=== PATIENT | male | born 1940 | race Caucasian/White ===

== ENCOUNTER 2017-01-08 07:34 | Outpatient (CLI) | payer MEDICARE, OTHER ==
[2017-01-08 08:16] LABS: ALT (SGPT) 9 U/L (0-55); AST (SGOT) 11 U/L (5-34); Alkaline Phosphatase 53 U/L (40-150); Anion Gap 18 mmol/L (10-20); BUN (Urea Nitrogen) 20 mg/dL (8.4-25.7); Bilirubin, Direct 0.2 mg/dL (0.1-0.3); Bilirubin, Total 0.4 mg/dL (0.2-1.2); Calc. Creatinine Clearance 0 mL/min (70-130); Calcium 8.7 mg/dL (7.8-10.44); Carbon Dioxide 20 mmol/L (23-31); Cardiac Risk 3.5 (Less than 4.5); Chloride 105 mmol/L (98-107); Cholesterol 129 mg/dL (< 200 Desired); Estimated GFR-MDRD 51; Glucose 100 mg/dL (83-110); HDL Cholesterol 37 mg/dL (>60 Neg Risk); LDL Cholesterol, Calculated 74 mg/dL; Potassium 4.3 mmol/L (3.5-5.1); Protein, Total 6.9 g/dL (5.8-8.1); Sodium 139 mmol/L (136-145); Triglycerides 90 mg/dL (Less than 150)
[2017-01-08 08:20] LABS: Hemoglobin A1c 5.7 % (4.0-6.0)
== END 2017-01-08 07:35 | disposition home or self-care (01) ==
LOC: MADLABBHPM 07:34
PROVIDERS: ATTEND Family Medicine
DX: E78.5 Hyperlipidemia, unspecified (principal); E11.9 Type 2 diabetes mellitus without complications
CPT/HCPCS: 36415; 80048; 80061; 80076; 83036

== ENCOUNTER 2017-07-08 07:45 | Outpatient (CLI) | payer MEDICARE ==
[2017-07-08 08:32] LABS: #Basophils 0.1 thou/uL (0.0-0.2); #Eosinphils 0.2 thou/uL (0.0-0.7); #Lymphocytes 1.3 thou/uL (1.20-3.40); #Monocytes 0.6 thou/uL (0.11-0.59); %Eosinophils 3.2 % (0.0-10.0); %Lymphocytes 21.8 % (21.0-51.0); %Monocytes 9.4 % (0.0-10.0); %Neutrophils 64.6 % (42.0-75.0); Hemoglobin 13.1 g/dL (14.0-18.0); Mean Corpuscular HGB CONC 30.8 g/dL (32.0-36.0); Mean Corpuscular Hemoglobin 27.9 pg (27.0-31.0); Mean Corpuscular Volume 90.5 fL (80.0-94.0); Platelet Count 183 thou/uL (130-400); RBC Distribution Width 14.7 % (11.5-14.5); Red Blood Cell (RBC) Count 4.71 mill/uL (4.70-6.10); White Blood Cell (WBC) Count 6.1 thou/uL (4.8-10.8)
[2017-07-08 08:41] LABS: Hemoglobin A1c 6.1 % (4.0-6.0)
[2017-07-08 09:27] LABS: ALT (SGPT) 11 U/L (8-55); AST (SGOT) 12 U/L (5-34); Albumin 3.8 g/dL (3.4-4.8); Alkaline Phosphatase 48 U/L (40-150); Anion Gap 14 mmol/L (10-20); BUN (Urea Nitrogen) 21 mg/dL (8.4-25.7); Bilirubin, Direct 0.2 mg/dL (0.1-0.3); Bilirubin, Total 0.4 mg/dL (0.2-1.2); Calc. Creatinine Clearance 0 mL/min (70-130); Calcium 8.9 mg/dL (7.8-10.44); Carbon Dioxide 24 mmol/L (23-31); Cardiac Risk 2.8 (Less than 4.5); Chloride 104 mmol/L (98-107); Cholesterol 107 mg/dl (< 200 Desired); Estimated GFR-MDRD 55; Glucose 116 mg/dL (83-110); HDL Cholesterol 38 mg/dL (>60 Neg Risk); LDL Cholesterol, Calculated 56 mg/dL; Potassium 4.4 mmol/L (3.5-5.1); Protein, Total 7.1 g/dL (5.8-8.1); Sodium 138 mmol/L (136-145); Triglycerides 66 mg/dL (Less than 150)
== END 2017-07-08 07:46 | disposition home or self-care (01) ==
LOC: MADLABBHPM 07:45
PROVIDERS: ATTEND Family Medicine
DX: E11.9 Type 2 diabetes mellitus without complications (principal); E78.5 Hyperlipidemia, unspecified; G45.9 Transient cerebral ischemic attack, unspecified
CPT/HCPCS: 36415; 80048; 80061; 80076; 83036; 85025

== ENCOUNTER 2017-12-29 08:38 | Outpatient (CLI) | payer MEDICARE ==
[2017-12-29 09:02] LABS: #Basophils 0.1 thou/uL (0.0-0.2); #Eosinphils 0.2 thou/uL (0.0-0.7); #Lymphocytes 1.4 thou/uL (1.20-3.40); #Monocytes 0.4 thou/uL (0.11-0.59); #Neutrophils 3.8 thou/uL (1.40-6.50); %Basophils 1.8 % (0.0-1.0); %Eosinophils 3.2 % (0.0-10.0); %Lymphocytes 24.3 % (21.0-51.0); %Monocytes 6.9 % (0.0-10.0); %Neutrophils 63.8 % (42.0-75.0); Hemoglobin 12.4 g/dL (14.0-18.0); Mean Corpuscular HGB CONC 31.7 g/dL (32.0-36.0); Mean Corpuscular Hemoglobin 27.6 pg (27.0-31.0); Mean Corpuscular Volume 87.1 fl (80.0-94.0); Platelet Count 186 thou/uL (130-400); White Blood Cell (WBC) Count 5.9 thou/uL (4.8-10.8)
[2017-12-29 10:05] LABS: Anion Gap 18 mmol/L (10-20); BUN (Urea Nitrogen) 38 mg/dL (8.4-25.7); Calc. Creatinine Clearance 0 mL/min (70-130); Calcium 8.8 mg/dL (7.8-10.44); Carbon Dioxide 22 mmol/L (23-31); Chloride 103 mmol/L (98-107); Estimated GFR-MDRD 35; Glucose 155 mg/dL (83-110); Potassium 4.5 mmol/L (3.5-5.1); Sodium 138 mmol/L (136-145)
== END 2017-12-29 08:39 | disposition home or self-care (01) ==
LOC: MADLABBHPM 08:38
PROVIDERS: ATTEND Family Medicine
DX: I10 Essential (primary) hypertension (principal)
CPT/HCPCS: 36415; 80048; 85025

== ENCOUNTER 2018-03-22 07:40 | Outpatient (CLI) | payer MEDICARE ==
[2018-03-22 08:34] LABS: #Basophils 0.1 thou/uL (0.0-0.2); #Eosinphils 0.2 thou/uL (0.0-0.7); #Lymphocytes 1.1 thou/uL (1.20-3.40); #Monocytes 0.4 thou/uL (0.11-0.59); #Neutrophils 3.8 thou/uL (1.40-6.50); %Eosinophils 3.5 % (0.0-10.0); %Lymphocytes 19.1 % (21.0-51.0); %Monocytes 7.2 % (0.0-10.0); %Neutrophils 69.2 % (42.0-75.0); Hemoglobin 11.6 g/dL (14.0-18.0); Mean Corpuscular HGB CONC 30.8 g/dL (32.0-36.0); Mean Corpuscular Volume 81.2 fl (80.0-94.0); Mean Platelet Volume 8.7 fL (7.4-10.4); Platelet Count 167 thou/uL (130-400); RBC Distribution Width 14.7 % (11.5-14.5); Red Blood Cell (RBC) Count 4.66 mill/uL (4.70-6.10); White Blood Cell (WBC) Count 5.5 thou/uL (4.8-10.8)
[2018-03-22 08:46] LABS: Anion Gap 14 mmol/L (10-20); BUN (Urea Nitrogen) 32 mg/dL (8.4-25.7); Calc. Creatinine Clearance 0 mL/min (70-130); Calcium 9.2 mg/dL (7.8-10.44); Carbon Dioxide 26 mmol/L (23-31); Chloride 102 mmol/L (98-107); Estimated GFR-MDRD 38; Glucose 190 mg/dL (83-110); Potassium 4.4 mmol/L (3.5-5.1); Sodium 138 mmol/L (136-145)
[2018-03-22 10:19] LABS: RBC Morphology Normal
== END 2018-03-22 07:41 ==
LOC: MADLABBHPM 07:40
PROVIDERS: ATTEND Family Medicine
DX: N18.3 Chronic kidney disease, stage 3 (moderate) (principal)
CPT/HCPCS: 36415; 80048; 85025

== ENCOUNTER 2018-04-22 15:42 | Outpatient (CLI) | payer MEDICARE ==
[2018-04-22 17:23] LABS: Anion Gap 21 mmol/L (10-20); BUN (Urea Nitrogen) 33 mg/dL (8.4-25.7); Calc. Creatinine Clearance 0 mL/min (70-130); Calcium 8.7 mg/dL (7.8-10.44); Carbon Dioxide 21 mmol/L (23-31); Chloride 102 mmol/L (98-107); Estimated GFR-MDRD 37; Glucose 121 mg/dL (83-110); Phosphorus 4.3 mg/dL (2.3-4.7); Potassium 4.1 mmol/L (3.5-5.1); Sodium 140 mmol/L (136-145)
[2018-04-22 22:01] LABS: Follow-up Chemistry Comp? YES; Follow-up Result - Chemistry REPORT FAXED
[2018-04-22 23:31] LABS: Creatinine, Urine 76.8 mg/dL (63-166)
== END 2018-04-22 15:43 | disposition home or self-care (01) ==
LOC: MADLAB 15:42
PROVIDERS: ATTEND Internal Medicine Nephrology
DX: I13.0 Hypertensive heart and chronic kidney disease with heart failure and stage 1 through stage 4 chronic kidney disease, or unspecified chronic kidney disease (principal); N18.3 Chronic kidney disease, stage 3 (moderate); I50.9 Heart failure, unspecified; R60.0 Localized edema
CPT/HCPCS: 36415; 80048; 82306; 82570; 83970; 84100; 84156; 85014; 85018

== ENCOUNTER 2018-05-19 07:34 | Outpatient (CLI) | payer MEDICARE ==
[2018-05-19 08:53] LABS: Anion Gap 14 mmol/L (10-20); BUN (Urea Nitrogen) 35 mg/dL (8.4-25.7); Calc. Creatinine Clearance 0 mL/min (70-130); Carbon Dioxide 26 mmol/L (23-31); Chloride 102 mmol/L (98-107); Estimated GFR-MDRD 39; Glucose 160 mg/dL (83-110); Potassium 4.2 mmol/L (3.5-5.1); Sodium 138 mmol/L (136-145)
== END 2018-05-19 07:35 | disposition home or self-care (01) ==
LOC: MADLABBHPM 07:34
PROVIDERS: ATTEND Family Medicine
DX: I50.30 Unspecified diastolic (congestive) heart failure (principal)
CPT/HCPCS: 36415; 80048

== ENCOUNTER 2018-05-31 17:35 | Outpatient (CLI) | payer MEDICARE ==
--- NOTE | 2018-05-31 19:19 | RAD ---
LEFT KNEE FOUR VIEWS: 05/31/18 INDICATIONS: fall with left knee injury and pain. FINDINGS: There is mild suprapatellar joint capsular distention. Prominent enthesophyte formation of the patell a is seen. There is mild osteoarthritis. No fracture or dislocation. Prominent vascular calcification is seen. IMPRESSION: Chronic osseous findings of the left knee without acute fracture. POS: [facility]
== END 2018-05-31 17:36 | disposition home or self-care (01) ==
LOC: MADRAD 17:35
PROVIDERS: ATTEND Family Medicine
DX: W19.XXXA Unspecified fall, initial encounter (principal)

== ENCOUNTER 2018-07-21 12:18 | Outpatient (CLI) | payer MEDICARE ==
[2018-07-21 13:13] LABS: Anion Gap 14 mmol/L (10-20); BUN (Urea Nitrogen) 31 mg/dL (8.4-25.7); Calc. Creatinine Clearance 0 mL/min (70-130); Calcium 9.1 mg/dL (7.8-10.44); Carbon Dioxide 26 mmol/L (23-31); Chloride 105 mmol/L (98-107); Estimated GFR-MDRD 39; Glucose 160 mg/dL (83-110); Magnesium 2.3 mg/dL (1.6-2.6); Potassium 4.4 mmol/L (3.5-5.1); Sodium 141 mmol/L (136-145)
== END 2018-07-21 12:19 | disposition home or self-care (01) ==
LOC: MADLAB 12:18
PROVIDERS: ATTEND Internal Medicine Nephrology
DX: I13.10 Hypertensive heart and chronic kidney disease without heart failure, with stage 1 through stage 4 chronic kidney disease, or unspecified chronic kidney disease (principal); N18.3 Chronic kidney disease, stage 3 (moderate); R60.9 Edema, unspecified
CPT/HCPCS: 36415; 80048; 83735

== ENCOUNTER 2019-09-28 07:51 | Outpatient (CLI) | payer MEDICARE ==
[2019-09-28 08:21] LABS: ALT (SGPT) 23 U/L (8-55); AST (SGOT) 17 U/L (5-34); Albumin 3.9 g/dL (3.4-4.8); Alkaline Phosphatase 55 U/L (40-110); Anion Gap 16 mmol/L (10-20); BUN (Urea Nitrogen) 30 mg/dL (8.4-25.7); Bilirubin, Direct 0.2 mg/dL (0.1-0.3); Bilirubin, Total 0.5 mg/dL (0.2-1.2); Calc. Creatinine Clearance 0 mL/min (70-130); Carbon Dioxide 25 mmol/L (23-31); Cardiac Risk 2.9 (Less than 4.5); Chloride 106 mmol/L (98-107); Cholesterol 104 mg/dl (< 200 Desired); Estimated GFR-MDRD 37; Glucose 108 mg/dL (83-110); HDL Cholesterol 36 mg/dL (>60 Neg Risk); LDL Cholesterol, Calculated 52 mg/dL; Potassium 4.5 mmol/L (3.5-5.1); Protein, Total 7.1 g/dL (5.8-8.1); Sodium 142 mmol/L (136-145); Triglycerides 81 mg/dL (Less than 150)
[2019-09-28 08:22] LABS: %Lymphocytes 21.1 % (21.0-51.0); %Monocytes 6.3 % (0.0-10.0); %Neutrophils 68.5 % (42.0-75.0); Hemoglobin 13.6 g/dL (14.0-18.0); Mean Corpuscular Hemoglobin 27.7 pg (27.0-31.0); Mean Corpuscular Volume 92.3 fL (78.0-98.0); Mean Platelet Volume 8.9 fL (7.4-10.4); Platelet Count 167 thou/uL (130-400); RBC Distribution Width 13.5 % (11.5-14.5); Red Blood Cell (RBC) Count 4.92 mill/uL (4.70-6.10); White Blood Cell (WBC) Count 5.5 thou/uL (4.8-10.8)
[2019-09-28 08:23] LABS: #Eosinphils 0.2 thou/uL (0.0-0.7); #Lymphocytes 1.2 thou/uL (1.20-3.40); #Monocytes 0.3 thou/uL (0.11-0.59); #Neutrophils 3.8 thou/uL (1.40-6.50); %Basophils 1.2 % (0.0-1.0)
[2019-09-28 08:24] LABS: #Basophils 0.1 thou/uL (0.0-0.2)
[2019-09-28 17:56] LABS: Hemoglobin A1c 7.7 % (4.0-6.0)
== END 2019-09-28 07:52 | disposition home or self-care (01) ==
LOC: MADLABBHPM 07:51
PROVIDERS: ATTEND Family Medicine
DX: E11.22 Type 2 diabetes mellitus with diabetic chronic kidney disease (principal); N18.3 Chronic kidney disease, stage 3 (moderate); E78.5 Hyperlipidemia, unspecified
CPT/HCPCS: 36415; 80048; 80061; 80076; 83036; 85025

== ENCOUNTER 2020-12-18 13:55 | Outpatient (CLI) | payer MEDICARE ==
[2020-12-18 14:20] LABS: #Eosinphils 0.2 thou/uL (0.0-0.7); #Monocytes 0.4 thou/uL (0.11-0.59); #Neutrophils 2.9 thou/uL (1.40-6.50); %Basophils 0.9 % (0.0-1.0); %Lymphocytes 22.1 % (21.0-51.0); %Monocytes 9.6 % (0.0-10.0); %Neutrophils 63.4 % (42.0-75.0); Mean Corpuscular HGB CONC 30.8 g/dL (32.0-36.0); Mean Corpuscular Hemoglobin 27.4 pg (27.0-31.0); Mean Corpuscular Volume 88.9 fL (78.0-98.0); Mean Platelet Volume 8.4 fL (7.4-10.4); Platelet Count 187 thou/uL (130-400); Red Blood Cell (RBC) Count 4.76 mill/uL (4.70-6.10); White Blood Cell (WBC) Count 4.6 thou/uL (4.8-10.8)
[2020-12-18 14:32] LABS: ALT (SGPT) 14 U/L (8-55); AST (SGOT) 19 U/L (5-34); Albumin 3.9 g/dL (3.4-4.8); Alkaline Phosphatase 57 U/L (40-110); Anion Gap 19 mmol/L (10-20); BUN (Urea Nitrogen) 46 mg/dL (8.4-25.7); Bilirubin, Total 0.5 mg/dL (0.2-1.2); Calc. Creatinine Clearance 0 mL/min (70-130); Calcium 8.5 mg/dL (7.8-10.44); Carbon Dioxide 30 mmol/L (23-31); Chloride 96 mmol/L (98-107); Cholesterol 131 mg/dl (< 200 Desired); Globulin 2.9 g/dL (2.4-3.5); Glucose 129 mg/dL (83-110); HDL Cholesterol 44 mg/dL (>60 Neg Risk); LDL Cholesterol, Calculated 73 mg/dL; Potassium 3.6 mmol/L (3.5-5.1); Protein, Total 6.8 g/dL (5.8-8.1); Sodium 141 mmol/L (136-145); Triglycerides 69 mg/dL (Less than 150)
== END 2020-12-18 13:56 | disposition home or self-care (01) ==
LOC: MADERS 13:55
PROVIDERS: ATTEND Family Medicine
DX: E11.22 Type 2 diabetes mellitus with diabetic chronic kidney disease (principal); N18.30 Chronic kidney disease, stage 3 unspecified; E78.5 Hyperlipidemia, unspecified
CPT/HCPCS: 80053; 80061; 83036; 84443; 85025

== ENCOUNTER 2021-01-08 13:30 | Outpatient (CLI) | payer MEDICARE ==
[2021-01-08 14:33] LABS: Anion Gap 14 mmol/L (10-20); BUN (Urea Nitrogen) 52 mg/dL (8.4-25.7); Calc. Creatinine Clearance 0 mL/min (70-130); Carbon Dioxide 29 mmol/L (23-31); Chloride 98 mmol/L (98-107); Glucose 194 mg/dL (83-110); Potassium 4.1 mmol/L (3.5-5.1); Sodium 137 mmol/L (136-145)
== END 2021-01-08 13:31 | disposition home or self-care (01) ==
LOC: MADLAB 13:30
PROVIDERS: ATTEND Internal Medicine Cardiovascular Disease
DX: N17.9 Acute kidney failure, unspecified (principal)
CPT/HCPCS: 80048

== ENCOUNTER 2021-04-08 10:36 | Outpatient (CLI) | payer MEDICARE | END 2021-04-08 10:37 | disposition home or self-care (01) | LOC: MADRAD 10:36 | PROVIDERS: ATTEND Family Medicine | DX: M25.511 Pain in right shoulder (principal); S42.211A Unspecified displaced fracture of surgical neck of right humerus, initial encounter for closed fracture ==

== ENCOUNTER 2021-05-28 11:25 | Outpatient (CLI) | payer MEDICARE ==
[2021-05-28 11:40] LABS: #Eosinphils 0.1 thou/uL (0.0-0.7); #Lymphocytes 1.2 thou/uL (1.20-3.40); #Monocytes 0.4 thou/uL (0.11-0.59); %Basophils 0.8 % (0.0-1.0); %Eosinophils 2.6 % (0.0-10.0); %Lymphocytes 24.5 % (21.0-51.0); %Monocytes 9.1 % (0.0-10.0); %Neutrophils 63.1 % (42.0-75.0); Hemoglobin 12.2 g/dL (14.0-18.0); Mean Corpuscular Hemoglobin 28.2 pg (27.0-31.0); Mean Corpuscular Volume 91.1 fL (78.0-98.0); Mean Platelet Volume 9.9 fL (7.4-10.4); Platelet Count 136 thou/uL (130-400); RBC Distribution Width 16.1 % (11.5-14.5); Red Blood Cell (RBC) Count 4.31 mill/uL (4.70-6.10); White Blood Cell (WBC) Count 4.8 thou/uL (4.8-10.8)
[2021-05-28 12:12] LABS: ALT (SGPT) 16 U/L (8-55); AST (SGOT) 14 U/L (5-34); Albumin 3.3 g/dL (3.4-4.8); Alkaline Phosphatase 47 U/L (40-110); Anion Gap 14 mmol/L (10-20); BUN (Urea Nitrogen) 59 mg/dL (8.4-25.7); Bilirubin, Total 0.4 mg/dL (0.2-1.2); Calc. Creatinine Clearance 0 mL/min (70-130); Calcium 8.5 mg/dL (7.8-10.44); Carbon Dioxide 28 mmol/L (23-31); Cardiac Risk 2.9 (Less than 4.5); Chloride 105 mmol/L (98-107); Cholesterol 117 mg/dl (< 200 Desired); Globulin 2.4 g/dL (2.4-3.5); Glucose 74 mg/dL (83-110); HDL Cholesterol 41 mg/dL (>60 Neg Risk); LDL Cholesterol, Calculated 67 mg/dL; Potassium 4.4 mmol/L (3.5-5.1); Protein, Total 5.7 g/dL (5.8-8.1); Sodium 143 mmol/L (136-145); Triglycerides 47 mg/dL (Less than 150)
[2021-05-28 18:42] LABS: Hemoglobin A1c 7.8 % (4.0-6.0)
== END 2021-05-28 11:26 | disposition home or self-care (01) ==
LOC: MADLAB 11:25
PROVIDERS: ATTEND Family Medicine
DX: I11.0 Hypertensive heart disease with heart failure (principal); I50.30 Unspecified diastolic (congestive) heart failure; I87.2 Venous insufficiency (chronic) (peripheral)
CPT/HCPCS: 80053; 80061; 83036; 85025

== ENCOUNTER 2021-11-29 10:13 | Emergency (ER) | payer MEDICARE ==
[2021-11-29] MEDS ORDERED: Boostrix 0.5 ML (Tdap) VIAL ONE (11:33)
== END 2021-11-29 11:50 | disposition home or self-care (01) ==
LOC: MADERS 10:13
DX: S30.0XXA Contusion of lower back and pelvis, initial encounter (principal); Z86.73 Personal history of transient ischemic attack (TIA), and cerebral infarction without residual deficits; I13.0 Hypertensive heart and chronic kidney disease with heart failure and stage 1 through stage 4 chronic kidney disease, or unspecified chronic kidney disease; I50.9 Heart failure, unspecified; N18.31 Chronic kidney disease, stage 3a; E78.2 Mixed hyperlipidemia; Z79.899 Other long term (current) drug therapy; Z79.4 Long term (current) use of insulin; Z79.82 Long term (current) use of aspirin; W18.30XA Fall on same level, unspecified, initial encounter
CPT/HCPCS: 72170; 90471; 90715

== ENCOUNTER 2021-12-05 14:01 | Emergency (ER) | payer MEDICARE | END 2021-12-05 15:49 | disposition home or self-care (01) | LOC: MADERS 14:01 | DX: S51.812A Laceration without foreign body of left forearm, initial encounter (principal); S61.412A Laceration without foreign body of left hand, initial encounter; S00.83XA Contusion of other part of head, initial encounter; W18.30XA Fall on same level, unspecified, initial encounter; Y92.091 Bathroom in other non-institutional residence as the place of occurrence of the external cause | CPT/HCPCS: 70450 ==

== ENCOUNTER 2021-12-10 10:36 | Outpatient (CLI) | payer MEDICARE ==
[2021-12-10 10:55] LABS: #Eosinphils 0.1 thou/uL (0.0-0.7); #Lymphocytes 0.8 thou/uL (1.20-3.40); #Monocytes 0.3 thou/uL (0.11-0.59); #Neutrophils 3.1 thou/uL (1.40-6.50); %Basophils 1.1 % (0.0-1.0); %Eosinophils 2.8 % (0.0-10.0); %Lymphocytes 18.3 % (21.0-51.0); %Monocytes 6.2 % (0.0-10.0); %Neutrophils 71.6 % (42.0-75.0); Hemoglobin 10.8 g/dL (14.0-18.0); Mean Corpuscular HGB CONC 31.2 g/dL (32.0-36.0); Mean Corpuscular Hemoglobin 27.8 pg (27.0-31.0); Mean Platelet Volume 8.3 fL (7.4-10.4); Platelet Count 168 thou/uL (130-400); RBC Distribution Width 15.9 % (11.5-14.5); Red Blood Cell (RBC) Count 3.88 mill/uL (4.70-6.10); White Blood Cell (WBC) Count 4.4 thou/uL (4.8-10.8)
[2021-12-10 11:19] LABS: ALT (SGPT) 10 U/L (8-55); AST (SGOT) 11 U/L (5-34); Albumin 3.4 g/dL (3.4-4.8); Alkaline Phosphatase 45 U/L (40-110); Anion Gap 15 mmol/L (10-20); BUN (Urea Nitrogen) 66 mg/dL (8.4-25.7); Bilirubin, Total 0.4 mg/dL (0.2-1.2); Calc. Creatinine Clearance 0 mL/min (70-130); Calcium 8.4 mg/dL (7.8-10.44); Carbon Dioxide 24 mmol/L (23-31); Cardiac Risk 2.7 (Less than 4.5); Chloride 110 mmol/L (98-107); Cholesterol 95 mg/dl (< 200 Desired); Globulin 2.4 g/dL (2.4-3.5); Glucose 107 mg/dL (83-110); HDL Cholesterol 35 mg/dL (>60 Neg Risk); LDL Cholesterol, Calculated 49 mg/dL; Potassium 4.9 mmol/L (3.5-5.1); Protein, Total 5.8 g/dL (5.8-8.1); Sodium 144 mmol/L (136-145); Triglycerides 55 mg/dL (Less than 150)
[2021-12-10 16:13] LABS: Hemoglobin A1c 6.5 % (4.0-6.0)
== END 2021-12-10 10:37 | disposition home or self-care (01) ==
LOC: MADLAB 10:36
PROVIDERS: ATTEND Family Medicine
DX: E11.22 Type 2 diabetes mellitus with diabetic chronic kidney disease (principal); N18.30 Chronic kidney disease, stage 3 unspecified; D63.1 Anemia in chronic kidney disease; I34.2 Nonrheumatic mitral (valve) stenosis
CPT/HCPCS: 80053; 80061; 83036; 84443; 85025

== ENCOUNTER 2021-12-14 16:12 | Emergency (ER) | payer MEDICARE ==
[2021-12-14] MEDS ORDERED: Bacitracin 1 PK ONE (17:37)
== END 2021-12-14 18:05 | disposition home or self-care (01) ==
LOC: MADERS 16:12
DX: R23.8 Other skin changes (principal); R60.0 Localized edema; E11.22 Type 2 diabetes mellitus with diabetic chronic kidney disease; I12.9 Hypertensive chronic kidney disease with stage 1 through stage 4 chronic kidney disease, or unspecified chronic kidney disease; N18.9 Chronic kidney disease, unspecified; Z79.4 Long term (current) use of insulin
CPT/HCPCS: 99284

== ENCOUNTER 2021-12-21 00:36 | Emergency (ER) | payer MEDICARE ==
[2021-12-21 01:52] LABS: #Lymphocytes 0.6 thou/uL (1.20-3.40); #Monocytes 0.3 thou/uL (0.11-0.59); #Neutrophils 6.1 thou/uL (1.40-6.50); %Basophils 0.6 % (0.0-1.0); %Eosinophils 0.6 % (0.0-10.0); %Lymphocytes 8.8 % (21.0-51.0); %Monocytes 4.3 % (0.0-10.0); %Neutrophils 85.7 % (42.0-75.0); Hemoglobin 11.5 g/dL (14.0-18.0); Mean Corpuscular HGB CONC 31.2 g/dL (32.0-36.0); Mean Corpuscular Hemoglobin 27.6 pg (27.0-31.0); Mean Corpuscular Volume 88.5 fL (78.0-98.0); Mean Platelet Volume 8.7 fL (7.4-10.4); Platelet Count 156 thou/uL (130-400); Red Blood Cell (RBC) Count 4.16 mill/uL (4.70-6.10); White Blood Cell (WBC) Count 7.1 thou/uL (4.8-10.8)
[2021-12-21] MEDS ORDERED: Furosemide 40 MG/4 ML VIAL ONE (02:05)
[2021-12-21 02:16] LABS: ALT (SGPT) 32 U/L (8-55); AST (SGOT) 42 U/L (5-34); Albumin 3.7 g/dL (3.4-4.8); Alkaline Phosphatase 63 U/L (40-110); Anion Gap 15 mmol/L (10-20); BUN (Urea Nitrogen) 64 mg/dL (8.4-25.7); Bilirubin, Total 0.4 mg/dL (0.2-1.2); Calc. Creatinine Clearance 0 mL/min (70-130); Calcium 8.5 mg/dL (7.8-10.44); Carbon Dioxide 24 mmol/L (23-31); Chloride 105 mmol/L (98-107); Globulin 3.1 g/dL (2.4-3.5); Glucose 274 mg/dL (83-110); Potassium 4.3 mmol/L (3.5-5.1); Protein, Total 6.8 g/dL (5.8-8.1); Sodium 140 mmol/L (136-145)
[2021-12-21 03:04] LABS: CKMB 6.8 ng/mL (0-6.6)
[2021-12-21 03:56] LABS: SARS-CoV-2 NAA Rapid Test Not Detected (NotDetected)
[2021-12-21] MEDS ORDERED: Aspirin Chewable 81 MG TAB ONE (04:17)
== END 2021-12-21 05:34 | disposition short-term general hospital (02) ==
LOC: MADERS 00:36
DX: I13.0 Hypertensive heart and chronic kidney disease with heart failure and stage 1 through stage 4 chronic kidney disease, or unspecified chronic kidney disease (principal); E11.22 Type 2 diabetes mellitus with diabetic chronic kidney disease; N18.9 Chronic kidney disease, unspecified; I50.9 Heart failure, unspecified; R77.8 Other specified abnormalities of plasma proteins; R09.02 Hypoxemia; I44.0 Atrioventricular block, first degree; E66.9 Obesity, unspecified; Z68.45 Body mass index [BMI] 70 or greater, adult; Z20.822 Contact with and (suspected) exposure to COVID-19; Z79.4 Long term (current) use of insulin; Z79.82 Long term (current) use of aspirin; Z79.899 Other long term (current) drug therapy
CPT/HCPCS: 0240U; 51702; 71045; 80053; 82553; 83880; 84484; 85025; 93005; 94760; 96374; 99285; J1940; J7620

== ENCOUNTER 2022-01-07 00:04 | Inpatient (IN) | payer MEDICARE ==
[2022-01-07] MEDS ORDERED: Diclofenac 1% 100 GM GEL TP PRN ×2 (06:39→08:18)
[2022-01-07] MEDS ORDERED: Albuterol Sulfate 2.5 mg/3 ml Neb NEB PRN ×2 (06:40→08:15)
[2022-01-07] MEDS ORDERED: Carvedilol 6.25 MG TAB PO SCH (08:00)
[2022-01-07] MEDS ORDERED: Dextrose 50% Abboject 50 ML SYRINGE IVP PRN (08:15)
[2022-01-07] MEDS ORDERED: Dextrose 5% in Water 1,000 ML IV PRN (08:15)
[2022-01-07] MEDS ORDERED: rOPINIRole HCl 0.25 MG TAB PO SCH (09:00)
[2022-01-07] MEDS ORDERED: Finasteride 5 MG TAB PO SCH (09:00)
[2022-01-07 09:41] LABS: ALT (SGPT) 28 U/L (8-55); AST (SGOT) 18 U/L (5-34); Albumin 3.5 g/dL (3.4-4.8); Alkaline Phosphatase 61 U/L (40-110); Anion Gap 22 mmol/L (10-20); BUN (Urea Nitrogen) 125 mg/dL (8.4-25.7); Bilirubin, Total 0.4 mg/dL (0.2-1.2); Calc. Creatinine Clearance 17 mL/min (70-130); Calcium 9.1 mg/dL (7.8-10.44); Carbon Dioxide 26 mmol/L (23-31); Chloride 93 mmol/L (98-107); Globulin 3.1 g/dL (2.4-3.5); Glucose 242 mg/dL (83-110); Potassium 3.7 mmol/L (3.5-5.1); Protein, Total 6.6 g/dL (5.8-8.1); Sodium 137 mmol/L (136-145)
[2022-01-07] MEDS: Carvedilol 6.25 MG TAB PO SCH ×2 (09:46→17:28)
[2022-01-07] MEDS: Isosorbide Dinitrate 10 MG TAB PO SCH ×3 (09:46→20:57)
[2022-01-07] MEDS: rOPINIRole HCl 0.25 MG TAB PO SCH ×3 (09:46→17:28)
[2022-01-07] MEDS: Furosemide 40 MG TAB PO SCH ×2 (09:46→14:30)
[2022-01-07] MEDS: Aspirin Chewable 81 MG TAB PO SCH (09:46)
[2022-01-07] MEDS: Gabapentin 300 MG CAP PO SCH (09:47)
[2022-01-07] MEDS: Heparin 5,000 UNITS/ML VIAL SC SCH ×2 (09:47→20:57)
[2022-01-07] MEDS: HumaLOG 300 UNITS/3 ML VIAL SC PRN ×3 (09:47→17:32)
[2022-01-07] MEDS: Finasteride 5 MG TAB PO SCH (20:56)
[2022-01-07] MEDS: rOPINIRole HCl 1 MG TAB PO SCH (20:57)
[2022-01-07] MEDS: Atorvastatin Calcium 10 MG TAB PO SCH (20:57)
[2022-01-07] MEDS: Tamsulosin HCl 0.4 MG CAP PO SCH (20:57)
[2022-01-07] MEDS ORDERED: rOPINIRole HCl 1 MG TAB PO SCH (21:00)
[2022-01-07] MEDS ORDERED: Tamsulosin HCl 0.4 MG CAP PO SCH (21:00)
[2022-01-07 21:12] LABS: SARS-CoV-2 PCR by NAA Not Detected (NotDetected)
[2022-01-08 05:36] LABS: #Basophils 0.1 thou/uL (0.0-0.2); #Eosinphils 0.1 thou/uL (0.0-0.7); #Lymphocytes 0.9 thou/uL (1.20-3.40); #Monocytes 0.4 thou/uL (0.11-0.59); #Neutrophils 2.7 thou/uL (1.40-6.50); %Basophils 1.3 % (0.0-1.0); %Lymphocytes 22.4 % (21.0-51.0); %Monocytes 8.6 % (0.0-10.0); %Neutrophils 64.7 % (42.0-75.0); Hemoglobin 11.6 g/dL (14.0-18.0); Mean Corpuscular HGB CONC 32.2 g/dL (32.0-36.0); Mean Corpuscular Hemoglobin 27.5 pg (27.0-31.0); Mean Corpuscular Volume 85.5 fL (78.0-98.0); Mean Platelet Volume 9.8 fL (7.4-10.4); Platelet Count 142 thou/uL (130-400); RBC Distribution Width 14.4 % (11.5-14.5); Red Blood Cell (RBC) Count 4.21 mill/uL (4.70-6.10); White Blood Cell (WBC) Count 4.2 thou/uL (4.8-10.8)
[2022-01-08] MEDS: Furosemide 40 MG TAB PO SCH ×2 (08:45→14:28)
[2022-01-08] MEDS: Aspirin Chewable 81 MG TAB PO SCH (08:45)
[2022-01-08] MEDS: rOPINIRole HCl 0.25 MG TAB PO SCH ×3 (08:46→17:14)
[2022-01-08] MEDS: Heparin 5,000 UNITS/ML VIAL SC SCH ×2 (08:46→20:51)
[2022-01-08] MEDS: Gabapentin 300 MG CAP PO SCH (08:46)
[2022-01-08] MEDS: Lantus 1000 UNITS/10 ML VIAL SC SCH (08:46)
[2022-01-08] MEDS: Isosorbide Dinitrate 10 MG TAB PO SCH ×3 (08:52→20:53)
[2022-01-08] MEDS: Carvedilol 6.25 MG TAB PO SCH (09:31)
[2022-01-08] MEDS ORDERED: Carvedilol 6.25 MG TAB PO SCH (17:00)
[2022-01-08] MEDS: Atorvastatin Calcium 10 MG TAB PO SCH (20:52)
[2022-01-08] MEDS: rOPINIRole HCl 1 MG TAB PO SCH (20:52)
[2022-01-08] MEDS: Finasteride 5 MG TAB PO SCH (20:53)
[2022-01-08] MEDS: Tamsulosin HCl 0.4 MG CAP PO SCH (20:53)
[2022-01-09] MEDS: Lantus 1000 UNITS/10 ML VIAL SC SCH (09:30)
[2022-01-09] MEDS: Gabapentin 300 MG CAP PO SCH (09:30)
[2022-01-09] MEDS: Aspirin Chewable 81 MG TAB PO SCH (09:30)
[2022-01-09] MEDS: Heparin 5,000 UNITS/ML VIAL SC SCH ×2 (09:31→21:32)
[2022-01-09] MEDS: Furosemide 40 MG TAB PO SCH ×2 (09:45→14:22)
[2022-01-09] MEDS: Carvedilol 3.125 MG TAB PO SCH ×2 (09:45→16:53)
[2022-01-09] MEDS: rOPINIRole HCl 0.25 MG TAB PO SCH ×3 (09:45→16:53)
[2022-01-09] MEDS: Isosorbide Dinitrate 10 MG TAB PO SCH ×3 (09:45→21:32)
[2022-01-09] MEDS: rOPINIRole HCl 1 MG TAB PO SCH (21:32)
[2022-01-09] MEDS: Atorvastatin Calcium 10 MG TAB PO SCH (21:32)
[2022-01-09] MEDS: Finasteride 5 MG TAB PO SCH (21:32)
[2022-01-09] MEDS: Tamsulosin HCl 0.4 MG CAP PO SCH (21:32)
[2022-01-10] MEDS: Carvedilol 3.125 MG TAB PO SCH ×2 (08:53→17:16)
[2022-01-10] MEDS: Gabapentin 300 MG CAP PO SCH (08:53)
[2022-01-10] MEDS: Furosemide 40 MG TAB PO SCH ×2 (08:53→13:41)
[2022-01-10] MEDS: Isosorbide Dinitrate 10 MG TAB PO SCH ×3 (08:53→20:49)
[2022-01-10] MEDS: Heparin 5,000 UNITS/ML VIAL SC SCH ×2 (08:54→20:50)
[2022-01-10] MEDS: rOPINIRole HCl 0.25 MG TAB PO SCH ×3 (08:54→17:17)
[2022-01-10] MEDS: Aspirin Chewable 81 MG TAB PO SCH (08:54)
[2022-01-10] MEDS: Lantus 1000 UNITS/10 ML VIAL SC SCH (08:56)
[2022-01-10] MEDS ORDERED: FLU VACC QS2021-22(65YR UP)/PF 240 MCG/0.7 ML SYRINGE IM ONE (09:00)
[2022-01-10] MEDS: rOPINIRole HCl 1 MG TAB PO SCH (20:49)
[2022-01-10] MEDS: Tamsulosin HCl 0.4 MG CAP PO SCH (20:49)
[2022-01-10] MEDS: Finasteride 5 MG TAB PO SCH (20:49)
[2022-01-10] MEDS: Atorvastatin Calcium 10 MG TAB PO SCH (20:49)
[2022-01-11] MEDS: Carvedilol 3.125 MG TAB PO SCH ×2 (08:45→17:41)
[2022-01-11] MEDS: Aspirin Chewable 81 MG TAB PO SCH (08:45)
[2022-01-11] MEDS: Furosemide 40 MG TAB PO SCH ×2 (08:45→13:42)
[2022-01-11] MEDS: Lantus 1000 UNITS/10 ML VIAL SC SCH (08:46)
[2022-01-11] MEDS: Gabapentin 300 MG CAP PO SCH (08:46)
[2022-01-11] MEDS: Heparin 5,000 UNITS/ML VIAL SC SCH ×2 (08:46→22:08)
[2022-01-11] MEDS: rOPINIRole HCl 0.25 MG TAB PO SCH ×3 (08:47→17:41)
[2022-01-11] MEDS: Isosorbide Dinitrate 10 MG TAB PO SCH ×3 (08:47→22:07)
[2022-01-11] MEDS: Atorvastatin Calcium 10 MG TAB PO SCH (22:07)
[2022-01-11] MEDS: Finasteride 5 MG TAB PO SCH (22:07)
[2022-01-11] MEDS: Tamsulosin HCl 0.4 MG CAP PO SCH (22:08)
[2022-01-11] MEDS: rOPINIRole HCl 1 MG TAB PO SCH (22:08)
[2022-01-12] MEDS: Heparin 5,000 UNITS/ML VIAL SC SCH ×2 (08:43→20:28)
[2022-01-12] MEDS: Lantus 1000 UNITS/10 ML VIAL SC SCH (08:43)
[2022-01-12] MEDS: rOPINIRole HCl 0.25 MG TAB PO SCH ×3 (08:45→16:46)
[2022-01-12] MEDS: Furosemide 40 MG TAB PO SCH ×2 (08:46→14:26)
[2022-01-12] MEDS: Gabapentin 300 MG CAP PO SCH (08:46)
[2022-01-12] MEDS: Isosorbide Dinitrate 10 MG TAB PO SCH ×3 (08:46→20:28)
[2022-01-12] MEDS: Aspirin Chewable 81 MG TAB PO SCH (08:46)
[2022-01-12] MEDS: Carvedilol 3.125 MG TAB PO SCH ×2 (08:46→16:46)
[2022-01-12] MEDS: rOPINIRole HCl 1 MG TAB PO SCH (20:28)
[2022-01-12] MEDS: Tamsulosin HCl 0.4 MG CAP PO SCH (20:28)
[2022-01-12] MEDS: Finasteride 5 MG TAB PO SCH (20:28)
[2022-01-12] MEDS: Atorvastatin Calcium 10 MG TAB PO SCH (20:28)
[2022-01-13] MEDS: Heparin 5,000 UNITS/ML VIAL SC SCH ×2 (08:08→20:34)
[2022-01-13] MEDS: rOPINIRole HCl 0.25 MG TAB PO SCH ×3 (08:09→17:28)
[2022-01-13] MEDS: Carvedilol 3.125 MG TAB PO SCH ×2 (08:09→17:29)
[2022-01-13] MEDS: Furosemide 40 MG TAB PO SCH ×2 (08:10→14:44)
[2022-01-13] MEDS: Aspirin Chewable 81 MG TAB PO SCH (08:10)
[2022-01-13] MEDS: Isosorbide Dinitrate 10 MG TAB PO SCH ×3 (08:10→20:34)
[2022-01-13] MEDS: Gabapentin 300 MG CAP PO SCH (08:10)
[2022-01-13] MEDS: Lantus 1000 UNITS/10 ML VIAL SC SCH (08:12)
[2022-01-13] MEDS: Atorvastatin Calcium 10 MG TAB PO SCH (20:34)
[2022-01-13] MEDS: Finasteride 5 MG TAB PO SCH (20:34)
[2022-01-13] MEDS: rOPINIRole HCl 1 MG TAB PO SCH (20:34)
[2022-01-13] MEDS: Tamsulosin HCl 0.4 MG CAP PO SCH (20:35)
[2022-01-14 05:27] LABS: #Basophils 0.1 thou/uL (0.0-0.2); #Eosinphils 0.1 thou/uL (0.0-0.7); #Lymphocytes 0.8 thou/uL (1.20-3.40); #Monocytes 0.5 thou/uL (0.11-0.59); #Neutrophils 4.9 thou/uL (1.40-6.50); %Basophils 0.9 % (0.0-1.0); %Lymphocytes 11.9 % (21.0-51.0); %Monocytes 7.5 % (0.0-10.0); %Neutrophils 77.7 % (42.0-75.0); Hemoglobin 11.6 g/dL (14.0-18.0); Mean Corpuscular HGB CONC 32.5 g/dL (32.0-36.0); Mean Corpuscular Hemoglobin 27.7 pg (27.0-31.0); Mean Corpuscular Volume 85.1 fL (78.0-98.0); Mean Platelet Volume 9.1 fL (7.4-10.4); Platelet Count 138 thou/uL (130-400); RBC Distribution Width 14.1 % (11.5-14.5); Red Blood Cell (RBC) Count 4.19 mill/uL (4.70-6.10); White Blood Cell (WBC) Count 6.3 thou/uL (4.8-10.8)
[2022-01-14 05:38] LABS: Anion Gap 18 mmol/L (10-20); BUN (Urea Nitrogen) 121 mg/dL (8.4-25.7); Calc. Creatinine Clearance 19 mL/min (70-130); Calcium 9.6 mg/dL (7.8-10.44); Carbon Dioxide 28 mmol/L (23-31); Chloride 93 mmol/L (98-107); Glucose 223 mg/dL (83-110); Potassium 3.4 mmol/L (3.5-5.1); Sodium 136 mmol/L (136-145)
[2022-01-14] MEDS: Gabapentin 300 MG CAP PO SCH (07:59)
[2022-01-14] MEDS: Aspirin Chewable 81 MG TAB PO SCH (07:59)
[2022-01-14] MEDS: Furosemide 40 MG TAB PO SCH ×2 (08:00→13:20)
[2022-01-14] MEDS: Lantus 1000 UNITS/10 ML VIAL SC SCH ×2 (08:00→09:34)
[2022-01-14] MEDS: rOPINIRole HCl 0.25 MG TAB PO SCH ×3 (08:00→16:25)
[2022-01-14] MEDS: Isosorbide Dinitrate 10 MG TAB PO SCH ×2 (08:01→21:57)
[2022-01-14] MEDS: Carvedilol 3.125 MG TAB PO SCH ×2 (08:04→16:25)
[2022-01-14] MEDS: Heparin 5,000 UNITS/ML VIAL SC SCH ×2 (08:09→22:30)
[2022-01-14] MEDS ORDERED: Potassium Chloride 10 MEQ TAB PO SCH (09:30)
[2022-01-14] MEDS: Potassium Chloride 10 MEQ TAB PO SCH (16:25)
[2022-01-14 17:48] LABS: SARS-CoV-2 PCR by NAA Not Detected (NotDetected)
[2022-01-14] MEDS: Finasteride 5 MG TAB PO SCH (21:57)
[2022-01-14] MEDS: rOPINIRole HCl 1 MG TAB PO SCH (21:57)
[2022-01-14] MEDS: Atorvastatin Calcium 10 MG TAB PO SCH (21:57)
[2022-01-14] MEDS: Tamsulosin HCl 0.4 MG CAP PO SCH (21:57)
[2022-01-15] MEDS: Aspirin Chewable 81 MG TAB PO SCH (09:09)
[2022-01-15] MEDS: Carvedilol 3.125 MG TAB PO SCH ×2 (09:09→18:11)
[2022-01-15] MEDS: Furosemide 40 MG TAB PO SCH ×2 (09:10→14:55)
[2022-01-15] MEDS: Isosorbide Dinitrate 10 MG TAB PO SCH ×2 (09:10→20:32)
[2022-01-15] MEDS: Lantus 1000 UNITS/10 ML VIAL SC SCH (09:10)
[2022-01-15] MEDS: Potassium Chloride 10 MEQ TAB PO SCH ×2 (09:10→18:12)
[2022-01-15] MEDS: Gabapentin 300 MG CAP PO SCH (09:10)
[2022-01-15] MEDS: Heparin 5,000 UNITS/ML VIAL SC SCH ×2 (09:11→20:29)
[2022-01-15] MEDS: rOPINIRole HCl 0.25 MG TAB PO SCH ×3 (09:14→18:12)
[2022-01-15] MEDS: Finasteride 5 MG TAB PO SCH (20:30)
[2022-01-15] MEDS: Atorvastatin Calcium 10 MG TAB PO SCH (20:31)
[2022-01-15] MEDS: rOPINIRole HCl 1 MG TAB PO SCH (20:31)
[2022-01-15] MEDS: Tamsulosin HCl 0.4 MG CAP PO SCH (20:31)
[2022-01-16] MEDS: Lantus 1000 UNITS/10 ML VIAL SC SCH (08:45)
[2022-01-16] MEDS: rOPINIRole HCl 0.25 MG TAB PO SCH ×3 (08:46→17:34)
[2022-01-16] MEDS: Heparin 5,000 UNITS/ML VIAL SC SCH ×2 (08:46→20:34)
[2022-01-16] MEDS: Gabapentin 300 MG CAP PO SCH (08:46)
[2022-01-16] MEDS: Carvedilol 3.125 MG TAB PO SCH ×2 (08:47→17:34)
[2022-01-16] MEDS: Aspirin Chewable 81 MG TAB PO SCH (08:47)
[2022-01-16] MEDS: Potassium Chloride 10 MEQ TAB PO SCH ×2 (08:47→17:34)
[2022-01-16] MEDS: Furosemide 40 MG TAB PO SCH ×2 (08:47→13:07)
[2022-01-16] MEDS: Isosorbide Dinitrate 10 MG TAB PO SCH ×2 (08:47→20:34)
[2022-01-16] MEDS: Finasteride 5 MG TAB PO SCH (20:34)
[2022-01-16] MEDS: rOPINIRole HCl 1 MG TAB PO SCH (20:34)
[2022-01-16] MEDS: Tamsulosin HCl 0.4 MG CAP PO SCH (20:34)
[2022-01-16] MEDS: Atorvastatin Calcium 10 MG TAB PO SCH (20:34)
[2022-01-17] MEDS: Gabapentin 300 MG CAP PO SCH (08:18)
[2022-01-17] MEDS: Potassium Chloride 10 MEQ TAB PO SCH ×2 (08:18→17:20)
[2022-01-17] MEDS: Carvedilol 3.125 MG TAB PO SCH ×2 (08:18→17:19)
[2022-01-17] MEDS: rOPINIRole HCl 0.25 MG TAB PO SCH ×3 (08:19→17:19)
[2022-01-17] MEDS: Furosemide 40 MG TAB PO SCH ×2 (08:19→14:47)
[2022-01-17] MEDS: Heparin 5,000 UNITS/ML VIAL SC SCH ×2 (08:19→20:58)
[2022-01-17] MEDS: Aspirin Chewable 81 MG TAB PO SCH (08:19)
[2022-01-17] MEDS: Isosorbide Dinitrate 10 MG TAB PO SCH ×2 (08:19→20:59)
[2022-01-17] MEDS: Lantus 1000 UNITS/10 ML VIAL SC SCH (08:21)
[2022-01-17] MEDS: rOPINIRole HCl 1 MG TAB PO SCH (20:59)
[2022-01-17] MEDS: Atorvastatin Calcium 10 MG TAB PO SCH (20:59)
[2022-01-17] MEDS: Finasteride 5 MG TAB PO SCH (20:59)
[2022-01-17] MEDS: Tamsulosin HCl 0.4 MG CAP PO SCH (20:59)
[2022-01-18] MEDS: Aspirin Chewable 81 MG TAB PO SCH (08:46)
[2022-01-18] MEDS: Lantus 1000 UNITS/10 ML VIAL SC SCH (08:47)
[2022-01-18] MEDS: Isosorbide Dinitrate 10 MG TAB PO SCH ×2 (08:47→21:41)
[2022-01-18] MEDS: rOPINIRole HCl 0.25 MG TAB PO SCH ×3 (08:47→16:57)
[2022-01-18] MEDS: Carvedilol 3.125 MG TAB PO SCH ×2 (08:47→16:58)
[2022-01-18] MEDS: Furosemide 40 MG TAB PO SCH ×2 (08:47→13:36)
[2022-01-18] MEDS: Gabapentin 300 MG CAP PO SCH (08:47)
[2022-01-18] MEDS: Heparin 5,000 UNITS/ML VIAL SC SCH ×2 (08:49→21:42)
[2022-01-18] MEDS: Potassium Chloride 10 MEQ TAB PO SCH ×2 (08:55→16:57)
[2022-01-18] MEDS: Atorvastatin Calcium 10 MG TAB PO SCH (21:41)
[2022-01-18] MEDS: Tamsulosin HCl 0.4 MG CAP PO SCH (21:42)
[2022-01-18] MEDS: Finasteride 5 MG TAB PO SCH (21:42)
[2022-01-18] MEDS: rOPINIRole HCl 1 MG TAB PO SCH (21:42)
[2022-01-19] MEDS: Furosemide 40 MG TAB PO SCH ×2 (09:55→13:09)
[2022-01-19] MEDS: Carvedilol 3.125 MG TAB PO SCH ×2 (09:55→17:14)
[2022-01-19] MEDS: Gabapentin 300 MG CAP PO SCH (09:55)
[2022-01-19] MEDS: Aspirin Chewable 81 MG TAB PO SCH (09:55)
[2022-01-19] MEDS: Potassium Chloride 10 MEQ TAB PO SCH ×2 (09:55→17:14)
[2022-01-19] MEDS: Isosorbide Dinitrate 10 MG TAB PO SCH ×2 (09:56→20:46)
[2022-01-19] MEDS: Heparin 5,000 UNITS/ML VIAL SC SCH ×2 (09:56→20:47)
[2022-01-19] MEDS: rOPINIRole HCl 0.25 MG TAB PO SCH ×3 (09:56→17:13)
[2022-01-19] MEDS: Lantus 1000 UNITS/10 ML VIAL SC SCH (09:56)
[2022-01-19] MEDS: Finasteride 5 MG TAB PO SCH (20:46)
[2022-01-19] MEDS: rOPINIRole HCl 1 MG TAB PO SCH (20:46)
[2022-01-19] MEDS: Tamsulosin HCl 0.4 MG CAP PO SCH (20:46)
[2022-01-19] MEDS: Atorvastatin Calcium 10 MG TAB PO SCH (20:46)
[2022-01-20] MEDS: Carvedilol 3.125 MG TAB PO SCH ×2 (09:07→17:21)
[2022-01-20] MEDS: rOPINIRole HCl 0.25 MG TAB PO SCH ×3 (09:08→17:21)
[2022-01-20] MEDS: Isosorbide Dinitrate 10 MG TAB PO SCH ×2 (09:08→20:19)
[2022-01-20] MEDS: Heparin 5,000 UNITS/ML VIAL SC SCH ×2 (09:08→20:18)
[2022-01-20] MEDS: Gabapentin 300 MG CAP PO SCH (09:08)
[2022-01-20] MEDS: Potassium Chloride 10 MEQ TAB PO SCH ×2 (09:08→17:21)
[2022-01-20] MEDS: Aspirin Chewable 81 MG TAB PO SCH (09:08)
[2022-01-20] MEDS: Furosemide 40 MG TAB PO SCH ×2 (09:08→14:03)
[2022-01-20] MEDS: Lantus 1000 UNITS/10 ML VIAL SC SCH (09:12)
[2022-01-20] MEDS: Tamsulosin HCl 0.4 MG CAP PO SCH (20:18)
[2022-01-20] MEDS: Finasteride 5 MG TAB PO SCH (20:18)
[2022-01-20] MEDS: Atorvastatin Calcium 10 MG TAB PO SCH (20:18)
[2022-01-20] MEDS: rOPINIRole HCl 1 MG TAB PO SCH (20:19)
[2022-01-21] MEDS: Isosorbide Dinitrate 10 MG TAB PO SCH ×2 (09:07→20:50)
[2022-01-21] MEDS: Aspirin Chewable 81 MG TAB PO SCH (09:07)
[2022-01-21] MEDS: Carvedilol 3.125 MG TAB PO SCH ×2 (09:08→16:40)
[2022-01-21] MEDS: Potassium Chloride 10 MEQ TAB PO SCH ×2 (09:08→16:40)
[2022-01-21] MEDS: Furosemide 40 MG TAB PO SCH ×2 (09:08→14:44)
[2022-01-21] MEDS: Gabapentin 300 MG CAP PO SCH (09:08)
[2022-01-21] MEDS: Heparin 5,000 UNITS/ML VIAL SC SCH ×2 (09:09→20:51)
[2022-01-21] MEDS: rOPINIRole HCl 0.25 MG TAB PO SCH ×3 (09:13→16:40)
[2022-01-21] MEDS: Lantus 1000 UNITS/10 ML VIAL SC SCH (09:13)
[2022-01-21 16:17] LABS: SARS-CoV-2 PCR by NAA Not Detected (NotDetected)
[2022-01-21] MEDS: Atorvastatin Calcium 10 MG TAB PO SCH (20:50)
[2022-01-21] MEDS: rOPINIRole HCl 1 MG TAB PO SCH (20:50)
[2022-01-21] MEDS: Finasteride 5 MG TAB PO SCH (20:51)
[2022-01-21] MEDS: Tamsulosin HCl 0.4 MG CAP PO SCH (20:51)
[2022-01-22] MEDS: Gabapentin 300 MG CAP PO SCH (08:48)
[2022-01-22] MEDS: rOPINIRole HCl 0.25 MG TAB PO SCH ×3 (08:48→17:24)
[2022-01-22] MEDS: Potassium Chloride 10 MEQ TAB PO SCH ×2 (08:48→17:24)
[2022-01-22] MEDS: Lantus 1000 UNITS/10 ML VIAL SC SCH (08:49)
[2022-01-22] MEDS: Heparin 5,000 UNITS/ML VIAL SC SCH ×2 (08:49→20:52)
[2022-01-22] MEDS: Carvedilol 3.125 MG TAB PO SCH ×2 (08:49→17:24)
[2022-01-22] MEDS: Isosorbide Dinitrate 10 MG TAB PO SCH ×2 (08:49→20:51)
[2022-01-22] MEDS: Aspirin Chewable 81 MG TAB PO SCH (08:49)
[2022-01-22] MEDS: Furosemide 40 MG TAB PO SCH ×2 (08:49→13:00)
[2022-01-22] MEDS: rOPINIRole HCl 1 MG TAB PO SCH (20:49)
[2022-01-22] MEDS: Tamsulosin HCl 0.4 MG CAP PO SCH (20:50)
[2022-01-22] MEDS: Atorvastatin Calcium 10 MG TAB PO SCH (20:51)
[2022-01-22] MEDS: Finasteride 5 MG TAB PO SCH (20:51)
[2022-01-23] MEDS: Carvedilol 3.125 MG TAB PO SCH ×2 (08:20→16:36)
[2022-01-23] MEDS: Furosemide 40 MG TAB PO SCH ×2 (08:20→13:21)
[2022-01-23] MEDS: Isosorbide Dinitrate 10 MG TAB PO SCH ×2 (08:21→20:40)
[2022-01-23] MEDS: Heparin 5,000 UNITS/ML VIAL SC SCH ×2 (08:21→20:40)
[2022-01-23] MEDS: Potassium Chloride 10 MEQ TAB PO SCH ×2 (08:21→16:36)
[2022-01-23] MEDS: Lantus 1000 UNITS/10 ML VIAL SC SCH (08:21)
[2022-01-23] MEDS: Aspirin Chewable 81 MG TAB PO SCH (08:21)
[2022-01-23] MEDS: rOPINIRole HCl 0.25 MG TAB PO SCH ×3 (08:25→16:36)
[2022-01-23] MEDS: Gabapentin 300 MG CAP PO SCH (08:28)
[2022-01-23] MEDS: Atorvastatin Calcium 10 MG TAB PO SCH (20:39)
[2022-01-23] MEDS: rOPINIRole HCl 1 MG TAB PO SCH (20:39)
[2022-01-23] MEDS: Tamsulosin HCl 0.4 MG CAP PO SCH (20:39)
[2022-01-23] MEDS: Finasteride 5 MG TAB PO SCH (20:40)
[2022-01-24] MEDS: Carvedilol 3.125 MG TAB PO SCH ×2 (09:17→17:47)
[2022-01-24] MEDS: Potassium Chloride 10 MEQ TAB PO SCH ×2 (09:17→17:47)
[2022-01-24] MEDS: Gabapentin 300 MG CAP PO SCH (09:18)
[2022-01-24] MEDS: Furosemide 40 MG TAB PO SCH ×2 (09:18→13:57)
[2022-01-24] MEDS: Heparin 5,000 UNITS/ML VIAL SC SCH ×2 (09:18→22:08)
[2022-01-24] MEDS: Isosorbide Dinitrate 10 MG TAB PO SCH ×2 (09:18→22:12)
[2022-01-24] MEDS: Lantus 1000 UNITS/10 ML VIAL SC SCH (09:18)
[2022-01-24] MEDS: rOPINIRole HCl 0.25 MG TAB PO SCH ×3 (09:18→17:47)
[2022-01-24] MEDS: Aspirin Chewable 81 MG TAB PO SCH (09:18)
[2022-01-24] MEDS: Finasteride 5 MG TAB PO SCH (22:12)
[2022-01-24] MEDS: Atorvastatin Calcium 10 MG TAB PO SCH (22:12)
[2022-01-24] MEDS: Tamsulosin HCl 0.4 MG CAP PO SCH (22:12)
[2022-01-24] MEDS: rOPINIRole HCl 1 MG TAB PO SCH (22:12)
[2022-01-24] MEDS ORDERED: Acetaminophen 325 MG TAB PO SCH (23:45)
[2022-01-25] MEDS ORDERED: Acetaminophen 325 MG TAB PO PRN (01:12)
[2022-01-25] MEDS: rOPINIRole HCl 0.25 MG TAB PO SCH ×3 (08:34→17:13)
[2022-01-25] MEDS: Gabapentin 300 MG CAP PO SCH (08:34)
[2022-01-25] MEDS: Lantus 1000 UNITS/10 ML VIAL SC SCH (08:35)
[2022-01-25] MEDS: Carvedilol 3.125 MG TAB PO SCH ×2 (08:35→17:13)
[2022-01-25] MEDS: Isosorbide Dinitrate 10 MG TAB PO SCH ×2 (08:35→20:20)
[2022-01-25] MEDS: Aspirin Chewable 81 MG TAB PO SCH (08:35)
[2022-01-25] MEDS: Potassium Chloride 10 MEQ TAB PO SCH ×2 (08:35→17:12)
[2022-01-25] MEDS: Furosemide 40 MG TAB PO SCH ×2 (08:35→14:15)
[2022-01-25] MEDS: Heparin 5,000 UNITS/ML VIAL SC SCH ×2 (08:35→20:20)
[2022-01-25] MEDS: Finasteride 5 MG TAB PO SCH (20:20)
[2022-01-25] MEDS: Tamsulosin HCl 0.4 MG CAP PO SCH (20:20)
[2022-01-25] MEDS: rOPINIRole HCl 1 MG TAB PO SCH (20:20)
[2022-01-25] MEDS: Atorvastatin Calcium 10 MG TAB PO SCH (20:20)
[2022-01-26] MEDS: Furosemide 40 MG TAB PO SCH ×2 (08:26→14:25)
[2022-01-26] MEDS: Gabapentin 300 MG CAP PO SCH (08:26)
[2022-01-26] MEDS: rOPINIRole HCl 0.25 MG TAB PO SCH ×3 (08:26→17:14)
[2022-01-26] MEDS: Aspirin Chewable 81 MG TAB PO SCH (08:27)
[2022-01-26] MEDS: Lantus 1000 UNITS/10 ML VIAL SC SCH (08:27)
[2022-01-26] MEDS: Carvedilol 3.125 MG TAB PO SCH ×2 (08:27→17:20)
[2022-01-26] MEDS: Heparin 5,000 UNITS/ML VIAL SC SCH ×2 (08:27→20:26)
[2022-01-26] MEDS: Potassium Chloride 10 MEQ TAB PO SCH ×2 (08:27→17:20)
[2022-01-26] MEDS: Isosorbide Dinitrate 10 MG TAB PO SCH ×2 (08:27→20:26)
[2022-01-26] MEDS: Atorvastatin Calcium 10 MG TAB PO SCH (20:26)
[2022-01-26] MEDS: Tamsulosin HCl 0.4 MG CAP PO SCH (20:26)
[2022-01-26] MEDS: rOPINIRole HCl 1 MG TAB PO SCH (20:26)
[2022-01-26] MEDS: Finasteride 5 MG TAB PO SCH (20:26)
[2022-01-27] MEDS: Furosemide 40 MG TAB PO SCH ×2 (08:39→13:39)
[2022-01-27] MEDS: Carvedilol 3.125 MG TAB PO SCH ×2 (08:39→16:44)
[2022-01-27] MEDS: Isosorbide Dinitrate 10 MG TAB PO SCH ×2 (08:39→20:47)
[2022-01-27] MEDS: Aspirin Chewable 81 MG TAB PO SCH (08:40)
[2022-01-27] MEDS: Gabapentin 300 MG CAP PO SCH (08:40)
[2022-01-27] MEDS: rOPINIRole HCl 0.25 MG TAB PO SCH ×3 (08:40→16:44)
[2022-01-27] MEDS: Heparin 5,000 UNITS/ML VIAL SC SCH ×2 (08:41→20:46)
[2022-01-27] MEDS: Lantus 1000 UNITS/10 ML VIAL SC SCH (08:42)
[2022-01-27] MEDS: Potassium Chloride 10 MEQ TAB PO SCH ×2 (08:47→16:44)
[2022-01-27] MEDS: Tamsulosin HCl 0.4 MG CAP PO SCH (20:47)
[2022-01-27] MEDS: Finasteride 5 MG TAB PO SCH (20:47)
[2022-01-27] MEDS: Atorvastatin Calcium 10 MG TAB PO SCH (20:47)
[2022-01-27] MEDS: rOPINIRole HCl 1 MG TAB PO SCH (20:47)
[2022-01-28 05:23] LABS: #Lymphocytes 0.9 thou/uL (1.20-3.40); #Monocytes 0.5 thou/uL (0.11-0.59); #Neutrophils 4.3 thou/uL (1.40-6.50); %Basophils 0.6 % (0.0-1.0); %Eosinophils 0.8 % (0.0-10.0); %Lymphocytes 15.3 % (21.0-51.0); %Monocytes 8.3 % (0.0-10.0); %Neutrophils 75.1 % (42.0-75.0); Hemoglobin 10.4 g/dL (14.0-18.0); Mean Corpuscular HGB CONC 29.9 g/dL (32.0-36.0); Mean Corpuscular Hemoglobin 26.6 pg (27.0-31.0); Mean Platelet Volume 8.7 fL (7.4-10.4); Platelet Count 163 thou/uL (130-400); RBC Distribution Width 14.6 % (11.5-14.5); Red Blood Cell (RBC) Count 3.93 mill/uL (4.70-6.10); White Blood Cell (WBC) Count 5.7 thou/uL (4.8-10.8)
[2022-01-28 05:36] LABS: Anion Gap 19 mmol/L (10-20); BUN (Urea Nitrogen) 96 mg/dL (8.4-25.7); Calc. Creatinine Clearance 18 mL/min (70-130); Calcium 8.9 mg/dL (7.8-10.44); Carbon Dioxide 26 mmol/L (23-31); Chloride 94 mmol/L (98-107); Glucose 178 mg/dL (83-110); Potassium 4.1 mmol/L (3.5-5.1); Sodium 135 mmol/L (136-145)
[2022-01-28] MEDS: glipiZIDE 5 MG TAB PO SCH (08:35)
[2022-01-28] MEDS: Aspirin Chewable 81 MG TAB PO SCH (08:38)
[2022-01-28] MEDS: Potassium Chloride 10 MEQ TAB PO SCH ×2 (08:38→17:05)
[2022-01-28] MEDS: rOPINIRole HCl 0.25 MG TAB PO SCH ×3 (08:38→17:05)
[2022-01-28] MEDS: Lantus 1000 UNITS/10 ML VIAL SC SCH (08:39)
[2022-01-28] MEDS: Carvedilol 3.125 MG TAB PO SCH ×2 (08:42→17:04)
[2022-01-28] MEDS: Furosemide 40 MG TAB PO SCH ×2 (08:42→14:00)
[2022-01-28] MEDS: Gabapentin 300 MG CAP PO SCH (08:42)
[2022-01-28] MEDS: Heparin 5,000 UNITS/ML VIAL SC SCH ×2 (08:43→21:43)
[2022-01-28 17:32] LABS: SARS-CoV-2 PCR by NAA Not Detected (NotDetected)
[2022-01-28] MEDS: Finasteride 5 MG TAB PO SCH (21:42)
[2022-01-28] MEDS: rOPINIRole HCl 1 MG TAB PO SCH (21:42)
[2022-01-28] MEDS: Atorvastatin Calcium 10 MG TAB PO SCH (21:42)
[2022-01-28] MEDS: Tamsulosin HCl 0.4 MG CAP PO SCH (21:42)
[2022-01-29] MEDS: glipiZIDE 5 MG TAB PO SCH (08:35)
[2022-01-29] MEDS: Potassium Chloride 10 MEQ TAB PO SCH ×2 (08:36→16:21)
[2022-01-29] MEDS: Gabapentin 300 MG CAP PO SCH (08:36)
[2022-01-29] MEDS: Furosemide 40 MG TAB PO SCH ×2 (08:36→13:25)
[2022-01-29] MEDS: rOPINIRole HCl 0.25 MG TAB PO SCH ×3 (08:37→16:21)
[2022-01-29] MEDS: Aspirin Chewable 81 MG TAB PO SCH (08:37)
[2022-01-29] MEDS: Carvedilol 3.125 MG TAB PO SCH ×2 (08:37→16:21)
[2022-01-29] MEDS: Lantus 1000 UNITS/10 ML VIAL SC SCH (08:37)
[2022-01-29] MEDS: Heparin 5,000 UNITS/ML VIAL SC SCH ×2 (08:38→20:16)
[2022-01-29] MEDS: Finasteride 5 MG TAB PO SCH (20:16)
[2022-01-29] MEDS: rOPINIRole HCl 1 MG TAB PO SCH (20:16)
[2022-01-29] MEDS: Tamsulosin HCl 0.4 MG CAP PO SCH (20:17)
[2022-01-29] MEDS: Atorvastatin Calcium 10 MG TAB PO SCH (20:17)
[2022-01-30] MEDS: Carvedilol 3.125 MG TAB PO SCH ×2 (08:29→17:35)
[2022-01-30] MEDS: Aspirin Chewable 81 MG TAB PO SCH (08:29)
[2022-01-30] MEDS: Potassium Chloride 10 MEQ TAB PO SCH ×2 (08:29→17:35)
[2022-01-30] MEDS: rOPINIRole HCl 0.25 MG TAB PO SCH ×3 (08:29→17:35)
[2022-01-30] MEDS: Furosemide 40 MG TAB PO SCH ×2 (08:29→14:23)
[2022-01-30] MEDS: glipiZIDE 5 MG TAB PO SCH (08:29)
[2022-01-30] MEDS: Gabapentin 300 MG CAP PO SCH (08:29)
[2022-01-30] MEDS: Lantus 1000 UNITS/10 ML VIAL SC SCH (08:30)
[2022-01-30] MEDS: Heparin 5,000 UNITS/ML VIAL SC SCH ×2 (08:31→21:06)
[2022-01-30] MEDS: Polyethylene Glycol 3350 17 GM Packet PO PRN (17:35)
[2022-01-30] MEDS: rOPINIRole HCl 1 MG TAB PO SCH (21:06)
[2022-01-30] MEDS: Finasteride 5 MG TAB PO SCH (21:06)
[2022-01-30] MEDS: Tamsulosin HCl 0.4 MG CAP PO SCH (21:06)
[2022-01-30] MEDS: Atorvastatin Calcium 10 MG TAB PO SCH (21:06)
[2022-01-31] MEDS: glipiZIDE 5 MG TAB PO SCH (08:08)
[2022-01-31] MEDS: Gabapentin 300 MG CAP PO SCH (08:08)
[2022-01-31] MEDS: Potassium Chloride 10 MEQ TAB PO SCH ×2 (08:08→16:21)
[2022-01-31] MEDS: Carvedilol 3.125 MG TAB PO SCH ×2 (08:08→16:20)
[2022-01-31] MEDS: rOPINIRole HCl 0.25 MG TAB PO SCH ×3 (08:09→16:20)
[2022-01-31] MEDS: Aspirin Chewable 81 MG TAB PO SCH (08:09)
[2022-01-31] MEDS: Lantus 1000 UNITS/10 ML VIAL SC SCH (08:11)
[2022-01-31] MEDS: Heparin 5,000 UNITS/ML VIAL SC SCH ×2 (08:13→21:04)
[2022-01-31] MEDS: Furosemide 40 MG TAB PO SCH ×2 (08:15→13:22)
[2022-01-31] MEDS: Finasteride 5 MG TAB PO SCH (21:04)
[2022-01-31] MEDS: Tamsulosin HCl 0.4 MG CAP PO SCH (21:04)
[2022-01-31] MEDS: Atorvastatin Calcium 10 MG TAB PO SCH (21:04)
[2022-01-31] MEDS: rOPINIRole HCl 1 MG TAB PO SCH (21:04)
[2022-02-01] MEDS: Carvedilol 3.125 MG TAB PO SCH ×2 (08:14→17:00)
[2022-02-01] MEDS: glipiZIDE 5 MG TAB PO SCH (08:14)
[2022-02-01] MEDS: Aspirin Chewable 81 MG TAB PO SCH (08:14)
[2022-02-01] MEDS: Gabapentin 300 MG CAP PO SCH (08:14)
[2022-02-01] MEDS: Potassium Chloride 10 MEQ TAB PO SCH ×2 (08:15→17:00)
[2022-02-01] MEDS: Furosemide 40 MG TAB PO SCH ×2 (08:15→13:41)
[2022-02-01] MEDS: rOPINIRole HCl 0.25 MG TAB PO SCH ×3 (08:15→17:00)
[2022-02-01] MEDS: Heparin 5,000 UNITS/ML VIAL SC SCH ×2 (08:15→21:11)
[2022-02-01] MEDS: Lantus 1000 UNITS/10 ML VIAL SC SCH (08:17)
[2022-02-01] MEDS: Tamsulosin HCl 0.4 MG CAP PO SCH (21:10)
[2022-02-01] MEDS: Finasteride 5 MG TAB PO SCH (21:10)
[2022-02-01] MEDS: rOPINIRole HCl 1 MG TAB PO SCH (21:10)
[2022-02-01] MEDS: Atorvastatin Calcium 10 MG TAB PO SCH (21:11)
[2022-02-02] MEDS: Potassium Chloride 10 MEQ TAB PO SCH ×2 (08:09→17:01)
[2022-02-02] MEDS: Carvedilol 3.125 MG TAB PO SCH ×2 (08:10→17:01)
[2022-02-02] MEDS: glipiZIDE 5 MG TAB PO SCH (08:10)
[2022-02-02] MEDS: Furosemide 40 MG TAB PO SCH ×2 (08:10→14:09)
[2022-02-02] MEDS: Polyethylene Glycol 3350 17 GM Packet PO PRN (08:10)
[2022-02-02] MEDS: Gabapentin 300 MG CAP PO SCH (08:10)
[2022-02-02] MEDS: rOPINIRole HCl 0.25 MG TAB PO SCH ×3 (08:10→17:01)
[2022-02-02] MEDS: Aspirin Chewable 81 MG TAB PO SCH (08:10)
[2022-02-02] MEDS: Lantus 1000 UNITS/10 ML VIAL SC SCH (08:11)
[2022-02-02] MEDS: Heparin 5,000 UNITS/ML VIAL SC SCH ×2 (08:13→20:42)
[2022-02-02] MEDS: rOPINIRole HCl 1 MG TAB PO SCH (20:42)
[2022-02-02] MEDS: Atorvastatin Calcium 10 MG TAB PO SCH (20:42)
[2022-02-02] MEDS: Finasteride 5 MG TAB PO SCH (20:42)
[2022-02-02] MEDS: Tamsulosin HCl 0.4 MG CAP PO SCH (20:42)
[2022-02-03 05:48] LABS: Anion Gap 16 mmol/L (10-20); BUN (Urea Nitrogen) 90 mg/dL (8.4-25.7); Calc. Creatinine Clearance 19 mL/min (70-130); Calcium 8.7 mg/dL (7.8-10.44); Carbon Dioxide 28 mmol/L (23-31); Chloride 97 mmol/L (98-107); Glucose 98 mg/dL (83-110); Potassium 4.4 mmol/L (3.5-5.1); Sodium 137 mmol/L (136-145)
[2022-02-03] MEDS: glipiZIDE 5 MG TAB PO SCH (07:54)
[2022-02-03] MEDS: Potassium Chloride 10 MEQ TAB PO SCH ×2 (07:55→16:44)
[2022-02-03] MEDS: Carvedilol 3.125 MG TAB PO SCH ×2 (07:55→16:44)
[2022-02-03] MEDS: Gabapentin 300 MG CAP PO SCH (08:02)
[2022-02-03] MEDS: rOPINIRole HCl 0.25 MG TAB PO SCH ×3 (08:02→16:45)
[2022-02-03] MEDS: Furosemide 40 MG TAB PO SCH ×2 (08:02→13:48)
[2022-02-03] MEDS: Heparin 5,000 UNITS/ML VIAL SC SCH ×2 (08:03→21:14)
[2022-02-03] MEDS: Aspirin Chewable 81 MG TAB PO SCH (08:06)
[2022-02-03] MEDS: Lantus 1000 UNITS/10 ML VIAL SC SCH (08:06)
[2022-02-03 13:54] VITALS: BMI 28.2
[2022-02-03] MEDS: Atorvastatin Calcium 10 MG TAB PO SCH (21:14)
[2022-02-03] MEDS: rOPINIRole HCl 1 MG TAB PO SCH (21:14)
[2022-02-03] MEDS: Tamsulosin HCl 0.4 MG CAP PO SCH (21:14)
[2022-02-03] MEDS: Finasteride 5 MG TAB PO SCH (21:14)
[2022-02-04] MEDS: Polyethylene Glycol 3350 17 GM Packet PO PRN (08:51)
[2022-02-04] MEDS: glipiZIDE 5 MG TAB PO SCH (08:51)
[2022-02-04] MEDS: Potassium Chloride 10 MEQ TAB PO SCH ×2 (08:52→16:53)
[2022-02-04] MEDS: rOPINIRole HCl 0.25 MG TAB PO SCH ×3 (08:52→16:53)
[2022-02-04] MEDS: Gabapentin 300 MG CAP PO SCH (08:52)
[2022-02-04] MEDS: Lantus 1000 UNITS/10 ML VIAL SC SCH (08:53)
[2022-02-04] MEDS: Heparin 5,000 UNITS/ML VIAL SC SCH ×2 (08:56→21:03)
[2022-02-04] MEDS: Aspirin Chewable 81 MG TAB PO SCH (08:56)
[2022-02-04] MEDS: Carvedilol 3.125 MG TAB PO SCH ×2 (09:03→16:53)
[2022-02-04] MEDS: Furosemide 40 MG TAB PO SCH ×2 (09:03→13:56)
[2022-02-04] MEDS: Atorvastatin Calcium 10 MG TAB PO SCH (21:03)
[2022-02-04] MEDS: rOPINIRole HCl 1 MG TAB PO SCH (21:03)
[2022-02-04] MEDS: Finasteride 5 MG TAB PO SCH (21:03)
[2022-02-04] MEDS: Tamsulosin HCl 0.4 MG CAP PO SCH (21:03)
[2022-02-04 22:55] LABS: SARS-CoV-2 PCR by NAA Not Detected (NotDetected)
[2022-02-05] MEDS: rOPINIRole HCl 0.25 MG TAB PO SCH ×3 (08:14→16:44)
[2022-02-05] MEDS: Gabapentin 300 MG CAP PO SCH (08:15)
[2022-02-05] MEDS: Aspirin Chewable 81 MG TAB PO SCH (08:15)
[2022-02-05] MEDS: glipiZIDE 5 MG TAB PO SCH (08:15)
[2022-02-05] MEDS: Heparin 5,000 UNITS/ML VIAL SC SCH ×2 (08:16→21:43)
[2022-02-05] MEDS: Lantus 1000 UNITS/10 ML VIAL SC SCH (08:16)
[2022-02-05] MEDS: Furosemide 40 MG TAB PO SCH ×2 (08:16→13:10)
[2022-02-05] MEDS: Carvedilol 3.125 MG TAB PO SCH ×2 (08:16→16:53)
[2022-02-05] MEDS: Potassium Chloride 10 MEQ TAB PO SCH ×2 (08:16→16:44)
[2022-02-05] MEDS: Atorvastatin Calcium 10 MG TAB PO SCH (21:42)
[2022-02-05] MEDS: rOPINIRole HCl 1 MG TAB PO SCH (21:43)
[2022-02-05] MEDS: Tamsulosin HCl 0.4 MG CAP PO SCH (21:43)
[2022-02-05] MEDS: Finasteride 5 MG TAB PO SCH (21:43)
[2022-02-06 05:47] LABS: #Eosinphils 0.1 thou/uL (0.0-0.7); #Lymphocytes 1.2 thou/uL (1.20-3.40); #Monocytes 0.3 thou/uL (0.11-0.59); #Neutrophils 3.3 thou/uL (1.40-6.50); %Basophils 0.9 % (0.0-1.0); %Lymphocytes 23.4 % (21.0-51.0); %Monocytes 6.6 % (0.0-10.0); %Neutrophils 67.1 % (42.0-75.0); Hemoglobin 11.9 g/dL (14.0-18.0); Mean Corpuscular Volume 87.5 fL (78.0-98.0); Mean Platelet Volume 9.9 fL (7.4-10.4); Platelet Count 194 thou/uL (130-400); RBC Distribution Width 15.1 % (11.5-14.5); Red Blood Cell (RBC) Count 4.25 mill/uL (4.70-6.10); White Blood Cell (WBC) Count 4.9 thou/uL (4.8-10.8)
[2022-02-06 05:59] LABS: Anion Gap 17 mmol/L (10-20); BUN (Urea Nitrogen) 86 mg/dL (8.4-25.7); Calc. Creatinine Clearance 19 mL/min (70-130); Carbon Dioxide 29 mmol/L (23-31); Chloride 99 mmol/L (98-107); Glucose 78 mg/dL (83-110); Potassium 4.3 mmol/L (3.5-5.1); Sodium 141 mmol/L (136-145)
[2022-02-06] MEDS: Lantus 1000 UNITS/10 ML VIAL SC SCH (08:01)
[2022-02-06] MEDS: Heparin 5,000 UNITS/ML VIAL SC SCH ×2 (08:01→22:07)
[2022-02-06] MEDS: Gabapentin 300 MG CAP PO SCH (08:01)
[2022-02-06] MEDS: rOPINIRole HCl 0.25 MG TAB PO SCH ×3 (08:01→17:08)
[2022-02-06] MEDS: Aspirin Chewable 81 MG TAB PO SCH (08:02)
[2022-02-06] MEDS: Furosemide 40 MG TAB PO SCH ×2 (08:02→13:18)
[2022-02-06] MEDS: glipiZIDE 5 MG TAB PO SCH (08:02)
[2022-02-06] MEDS: Potassium Chloride 10 MEQ TAB PO SCH ×2 (08:02→17:08)
[2022-02-06] MEDS: Carvedilol 3.125 MG TAB PO SCH ×2 (08:03→17:08)
[2022-02-06] MEDS: Tamsulosin HCl 0.4 MG CAP PO SCH (22:07)
[2022-02-06] MEDS: rOPINIRole HCl 1 MG TAB PO SCH (22:07)
[2022-02-06] MEDS: Finasteride 5 MG TAB PO SCH (22:07)
[2022-02-06] MEDS: Atorvastatin Calcium 10 MG TAB PO SCH (22:07)
[2022-02-07 07:49] VITALS: BP 112/70; TEMP 97.7
[2022-02-07] MEDS: Aspirin Chewable 81 MG TAB PO SCH (08:28)
[2022-02-07] MEDS: Potassium Chloride 10 MEQ TAB PO SCH ×2 (08:28→17:07)
[2022-02-07] MEDS: glipiZIDE 5 MG TAB PO SCH (08:28)
[2022-02-07] MEDS: rOPINIRole HCl 0.25 MG TAB PO SCH ×3 (08:28→17:07)
[2022-02-07] MEDS: Furosemide 40 MG TAB PO SCH ×2 (08:28→13:55)
[2022-02-07] MEDS: Carvedilol 3.125 MG TAB PO SCH ×2 (08:28→17:07)
[2022-02-07] MEDS: Gabapentin 300 MG CAP PO SCH (08:28)
[2022-02-07] MEDS: Heparin 5,000 UNITS/ML VIAL SC SCH (08:29)
[2022-02-07] MEDS: Lantus 1000 UNITS/10 ML VIAL SC SCH (08:29)
== END 2022-02-07 17:45 | disposition home health service (06) | DRG 948 ==
LOC: MADMS 00:42
PROVIDERS: ADMIT Family Medicine; ATTEND Family Medicine
DX: R53.1 Weakness (principal); N18.4 Chronic kidney disease, stage 4 (severe); I13.0 Hypertensive heart and chronic kidney disease with heart failure and stage 1 through stage 4 chronic kidney disease, or unspecified chronic kidney disease; I42.0 Dilated cardiomyopathy; I50.42 Chronic combined systolic (congestive) and diastolic (congestive) heart failure; Z20.822 Contact with and (suspected) exposure to COVID-19; E11.22 Type 2 diabetes mellitus with diabetic chronic kidney disease; I25.10 Atherosclerotic heart disease of native coronary artery without angina pectoris; N40.0 Benign prostatic hyperplasia without lower urinary tract symptoms; E78.5 Hyperlipidemia, unspecified; M15.9 Polyosteoarthritis, unspecified; K21.9 Gastro-esophageal reflux disease without esophagitis; H91.90 Unspecified hearing loss, unspecified ear; I87.2 Venous insufficiency (chronic) (peripheral); I95.1 Orthostatic hypotension; Z79.4 Long term (current) use of insulin; Z97.4 Presence of external hearing-aid; Z86.73 Personal history of transient ischemic attack (TIA), and cerebral infarction without residual deficits; Z90.49 Acquired absence of other specified parts of digestive tract; Z98.52 Vasectomy status; Z79.82 Long term (current) use of aspirin; Z79.899 Other long term (current) drug therapy
CPT/HCPCS: 36415; 36416; 80048; 80053; 85025; 94640; J1644; J1815; J7611; U0003; U0005

== ENCOUNTER 2022-04-24 14:38 | Emergency (ER) | payer MEDICARE ==
[~2022-04-24 14:38] MED LIST: Sodium Chloride 0.9% 1,000 ML BAG ONE
[2022-04-24 15:30] LABS: Hemoglobin 10.1 g/dL (14.0-18.0); Mean Corpuscular HGB CONC 30.4 g/dL (32.0-36.0); Mean Corpuscular Hemoglobin 26.4 pg (27.0-31.0); Mean Corpuscular Volume 86.8 fL (78.0-98.0); Mean Platelet Volume 11.5 fL (7.4-10.4); Platelet Count 94 thou/uL (130-400); RBC Distribution Width 17.1 % (11.5-14.5); Red Blood Cell (RBC) Count 3.84 mill/uL (4.70-6.10); White Blood Cell (WBC) Count 4.8 thou/uL (4.8-10.8)
[2022-04-24 15:43] LABS: ALT (SGPT) 38 U/L (8-55); AST (SGOT) 33 U/L (5-34); Albumin 3.4 g/dL (3.4-4.8); Alkaline Phosphatase 57 U/L (40-110); Anion Gap 14 mmol/L (10-20); BUN (Urea Nitrogen) 96 mg/dL (8.4-25.7); Bilirubin, Total 0.4 mg/dL (0.2-1.2); Calc. Creatinine Clearance 0 mL/min (70-130); Calcium 8.3 mg/dL (7.8-10.44); Carbon Dioxide 27 mmol/L (23-31); Chloride 105 mmol/L (98-107); Estimated GFR 15; Globulin 2.4 g/dL (2.4-3.5); Glucose 172 mg/dL (83-110); Protein, Total 5.8 g/dL (5.8-8.1); Sodium 141 mmol/L (136-145)
[2022-04-24 15:52] LABS: #Eosinphils 0.1 thou/uL (0.0-0.7); #Lymphocytes 0.9 thou/uL (1.20-3.40); #Monocytes 0.4 thou/uL (0.11-0.59); #Neutrophils 3.4 thou/uL (1.40-6.50); %Basophils 0.9 % (0.0-1.0); %Eosinophils 2.5 % (0.0-10.0); %Lymphocytes 19.4 % (21.0-51.0); %Monocytes 7.7 % (0.0-10.0); %Neutrophils 69.6 % (42.0-75.0); MDiff Complete? YES; Microcytosis SLIGHT = 6-15 cells (100X) (0-5/hpf); Platelet Morphology Comment Appears Decreased
== END 2022-04-24 16:25 | disposition short-term general hospital (02) ==
LOC: MADERS 14:38
DX: R00.1 Bradycardia, unspecified (principal); D64.9 Anemia, unspecified; E86.0 Dehydration; I13.0 Hypertensive heart and chronic kidney disease with heart failure and stage 1 through stage 4 chronic kidney disease, or unspecified chronic kidney disease; N18.9 Chronic kidney disease, unspecified; I50.9 Heart failure, unspecified; D69.6 Thrombocytopenia, unspecified; E11.22 Type 2 diabetes mellitus with diabetic chronic kidney disease; Z79.82 Long term (current) use of aspirin; Z79.4 Long term (current) use of insulin; E66.9 Obesity, unspecified; Z79.899 Other long term (current) drug therapy
CPT/HCPCS: 71045; 80053; 84443; 84484; 85025; 93005; J7050

== ENCOUNTER 2022-04-30 12:25 | Inpatient (IN) | payer MEDICARE ==
[2022-05-01] MEDS ORDERED: Diclofenac 1% 100 GM GEL TP PRN (23:09)
[2022-05-01] MEDS ORDERED: Albuterol Sulfate 2.5 mg/3 ml Neb NEB PRN (23:11)
[2022-05-02] MEDS ORDERED: Lantus 1000 UNITS/10 ML VIAL SC SCH ×2 (00:15→21:00)
[2022-05-02] MEDS: Cephalexin 500 MG CAP PO SCH ×2 (08:16→21:32)
[2022-05-02] MEDS: Carvedilol 6.25 MG TAB PO SCH ×2 (08:16→16:48)
[2022-05-02] MEDS: Furosemide 40 MG TAB PO SCH ×2 (08:16→13:50)
[2022-05-02] MEDS: Potassium Chloride 10 MEQ TAB PO SCH ×2 (08:16→21:32)
[2022-05-02] MEDS: Aspirin 81 mg Enteric Coated Tablet PO SCH (08:16)
[2022-05-02] MEDS: Finasteride 5 MG TAB PO SCH (08:16)
[2022-05-02 13:03] LABS: ALT (SGPT) 39 U/L (8-55); AST (SGOT) 26 U/L (5-34); Albumin 3.3 g/dL (3.4-4.8); Alkaline Phosphatase 57 U/L (40-110); Anion Gap 18 mmol/L (10-20); BUN (Urea Nitrogen) 96 mg/dL (8.4-25.7); Bilirubin, Total 0.7 mg/dL (0.2-1.2); Calc. Creatinine Clearance 20 mL/min (70-130); Calcium 8.8 mg/dL (7.8-10.44); Carbon Dioxide 27 mmol/L (23-31); Chloride 103 mmol/L (98-107); Estimated GFR 17; Glucose 211 mg/dL (83-110); Potassium 3.6 mmol/L (3.5-5.1); Protein, Total 6.3 g/dL (5.8-8.1); Sodium 144 mmol/L (136-145)
[2022-05-02] MEDS: Atorvastatin Calcium 10 MG TAB PO SCH (21:32)
[2022-05-02] MEDS: Tamsulosin HCl 0.4 MG CAP PO SCH (21:33)
[2022-05-03 05:36] LABS: #Basophils 0.1 thou/uL (0.0-0.2); #Eosinphils 0.2 thou/uL (0.0-0.7); #Lymphocytes 0.9 thou/uL (1.20-3.40); #Monocytes 0.5 thou/uL (0.11-0.59); #Neutrophils 4.1 thou/uL (1.40-6.50); %Basophils 1.8 % (0.0-1.0); %Eosinophils 3.1 % (0.0-10.0); %Monocytes 8.8 % (0.0-10.0); %Neutrophils 71.3 % (42.0-75.0); Anisocytosis SLIGHT = 6-15 cells (100X) (0-5/hpf); Hemoglobin 12.6 g/dL (14.0-18.0); MDiff Complete? YES; Mean Corpuscular HGB CONC 31.4 g/dL (32.0-36.0); Mean Corpuscular Hemoglobin 26.5 pg (27.0-31.0); Mean Corpuscular Volume 84.4 fL (78.0-98.0); Mean Platelet Volume 11.8 fL (7.4-10.4); Platelet Count 84 thou/uL (130-400); Platelet Morphology Comment Appears Decreased; RBC Distribution Width 16.9 % (11.5-14.5); Red Blood Cell (RBC) Count 4.74 mill/uL (4.70-6.10); White Blood Cell (WBC) Count 5.8 thou/uL (4.8-10.8)
[2022-05-03] MEDS: Carvedilol 6.25 MG TAB PO SCH ×2 (08:52→17:02)
[2022-05-03] MEDS: Aspirin 81 mg Enteric Coated Tablet PO SCH (08:53)
[2022-05-03] MEDS: Potassium Chloride 10 MEQ TAB PO SCH ×2 (08:53→20:32)
[2022-05-03] MEDS: Furosemide 40 MG TAB PO SCH ×2 (08:53→15:16)
[2022-05-03] MEDS: Cephalexin 500 MG CAP PO SCH ×2 (08:53→20:33)
[2022-05-03] MEDS: Finasteride 5 MG TAB PO SCH (08:53)
[2022-05-03] MEDS: Tamsulosin HCl 0.4 MG CAP PO SCH (20:32)
[2022-05-03] MEDS: Lantus 1000 UNITS/10 ML VIAL SC SCH (20:33)
[2022-05-03] MEDS: Atorvastatin Calcium 10 MG TAB PO SCH (20:33)
[2022-05-04] MEDS: Carvedilol 6.25 MG TAB PO SCH ×2 (08:19→17:29)
[2022-05-04] MEDS: Cephalexin 500 MG CAP PO SCH ×2 (08:19→21:36)
[2022-05-04] MEDS: Furosemide 40 MG TAB PO SCH ×2 (08:19→13:48)
[2022-05-04] MEDS: Aspirin 81 mg Enteric Coated Tablet PO SCH (08:19)
[2022-05-04] MEDS: Finasteride 5 MG TAB PO SCH (08:19)
[2022-05-04] MEDS: Potassium Chloride 10 MEQ TAB PO SCH ×2 (08:19→21:37)
[2022-05-04] MEDS: Tamsulosin HCl 0.4 MG CAP PO SCH (21:36)
[2022-05-04] MEDS: Atorvastatin Calcium 10 MG TAB PO SCH (21:36)
[2022-05-04] MEDS: Lantus 1000 UNITS/10 ML VIAL SC SCH (21:37)
[2022-05-05] MEDS: Potassium Chloride 10 MEQ TAB PO SCH ×2 (08:52→17:19)
[2022-05-05] MEDS: Aspirin 81 mg Enteric Coated Tablet PO SCH (08:52)
[2022-05-05] MEDS: Cephalexin 500 MG CAP PO SCH ×2 (08:53→21:59)
[2022-05-05] MEDS: Furosemide 40 MG TAB PO SCH ×2 (08:53→14:11)
[2022-05-05] MEDS: Carvedilol 6.25 MG TAB PO SCH ×2 (08:53→17:18)
[2022-05-05] MEDS: Finasteride 5 MG TAB PO SCH (08:53)
[2022-05-05] MEDS: Atorvastatin Calcium 10 MG TAB PO SCH (21:59)
[2022-05-05] MEDS: Tamsulosin HCl 0.4 MG CAP PO SCH (21:59)
[2022-05-05] MEDS: Acetaminophen 325 MG TAB PO PRN (22:00)
[2022-05-05] MEDS: Lantus 1000 UNITS/10 ML VIAL SC SCH (22:02)
[2022-05-06 05:28] LABS: Anion Gap 19 mmol/L (10-20); BUN (Urea Nitrogen) 86 mg/dL (8.4-25.7); Calc. Creatinine Clearance 20 mL/min (70-130); Calcium 8.8 mg/dL (7.8-10.44); Carbon Dioxide 26 mmol/L (23-31); Chloride 97 mmol/L (98-107); Estimated GFR 17; Glucose 363 mg/dL (83-110); Potassium 3.8 mmol/L (3.5-5.1); Sodium 138 mmol/L (136-145)
[2022-05-06] MEDS: Aspirin 81 mg Enteric Coated Tablet PO SCH (08:17)
[2022-05-06] MEDS: Potassium Chloride 10 MEQ TAB PO SCH ×2 (08:17→17:17)
[2022-05-06] MEDS: Finasteride 5 MG TAB PO SCH (08:17)
[2022-05-06] MEDS: Furosemide 40 MG TAB PO SCH ×2 (08:17→13:13)
[2022-05-06] MEDS: Carvedilol 6.25 MG TAB PO SCH ×2 (08:18→17:17)
[2022-05-06] MEDS: Cephalexin 500 MG CAP PO SCH ×2 (08:18→21:07)
[2022-05-06] MEDS: Tamsulosin HCl 0.4 MG CAP PO SCH (21:07)
[2022-05-06] MEDS: Acetaminophen 325 MG TAB PO PRN (21:07)
[2022-05-06] MEDS: Atorvastatin Calcium 10 MG TAB PO SCH (21:07)
[2022-05-06] MEDS: Lantus 1000 UNITS/10 ML VIAL SC SCH (21:09)
[2022-05-07] MEDS: Furosemide 40 MG TAB PO SCH ×2 (08:22→14:28)
[2022-05-07] MEDS: Carvedilol 6.25 MG TAB PO SCH ×2 (08:23→17:23)
[2022-05-07] MEDS: Cephalexin 500 MG CAP PO SCH ×2 (08:23→21:08)
[2022-05-07] MEDS: Aspirin 81 mg Enteric Coated Tablet PO SCH (08:23)
[2022-05-07] MEDS: Potassium Chloride 10 MEQ TAB PO SCH ×2 (08:23→17:23)
[2022-05-07] MEDS: Finasteride 5 MG TAB PO SCH (08:23)
[2022-05-07] MEDS: Acetaminophen 325 MG TAB PO PRN (21:08)
[2022-05-07] MEDS: Atorvastatin Calcium 10 MG TAB PO SCH (21:08)
[2022-05-07] MEDS: Tamsulosin HCl 0.4 MG CAP PO SCH (21:08)
[2022-05-07] MEDS: Lantus 1000 UNITS/10 ML VIAL SC SCH (21:09)
[2022-05-08] MEDS: Carvedilol 6.25 MG TAB PO SCH ×2 (09:08→17:41)
[2022-05-08] MEDS: Potassium Chloride 10 MEQ TAB PO SCH ×2 (09:08→17:41)
[2022-05-08] MEDS: Cephalexin 500 MG CAP PO SCH ×2 (09:08→21:49)
[2022-05-08] MEDS: Finasteride 5 MG TAB PO SCH (09:08)
[2022-05-08] MEDS: Furosemide 40 MG TAB PO SCH ×2 (09:08→14:24)
[2022-05-08] MEDS: Aspirin 81 mg Enteric Coated Tablet PO SCH (09:08)
[2022-05-08] MEDS: Atorvastatin Calcium 10 MG TAB PO SCH (21:49)
[2022-05-08] MEDS: Lantus 1000 UNITS/10 ML VIAL SC SCH (21:49)
[2022-05-08] MEDS: Tamsulosin HCl 0.4 MG CAP PO SCH (21:49)
[2022-05-08] MEDS: Acetaminophen 325 MG TAB PO PRN (21:51)
[2022-05-09] MEDS: Cephalexin 500 MG CAP PO SCH (09:15)
[2022-05-09] MEDS: Finasteride 5 MG TAB PO SCH (09:15)
[2022-05-09] MEDS: Furosemide 40 MG TAB PO SCH ×2 (09:15→14:57)
[2022-05-09] MEDS: Carvedilol 6.25 MG TAB PO SCH ×2 (09:16→17:13)
[2022-05-09] MEDS: Potassium Chloride 10 MEQ TAB PO SCH ×2 (09:16→17:13)
[2022-05-09] MEDS: Aspirin 81 mg Enteric Coated Tablet PO SCH (09:16)
[2022-05-09] MEDS: Acetaminophen 325 MG TAB PO PRN (20:59)
[2022-05-09] MEDS: Tamsulosin HCl 0.4 MG CAP PO SCH (20:59)
[2022-05-09] MEDS: Polyethylene Glycol 3350 17 GM Packet PO PRN (20:59)
[2022-05-09] MEDS: Atorvastatin Calcium 10 MG TAB PO SCH (20:59)
[2022-05-09] MEDS: Lantus 1000 UNITS/10 ML VIAL SC SCH (21:01)
[2022-05-10] MEDS: Furosemide 40 MG TAB PO SCH ×2 (08:05→15:21)
[2022-05-10] MEDS: Finasteride 5 MG TAB PO SCH (08:05)
[2022-05-10] MEDS: Carvedilol 6.25 MG TAB PO SCH ×2 (08:05→17:42)
[2022-05-10] MEDS: Potassium Chloride 10 MEQ TAB PO SCH ×2 (08:05→17:42)
[2022-05-10] MEDS: Aspirin 81 mg Enteric Coated Tablet PO SCH (08:05)
[2022-05-10] MEDS: Atorvastatin Calcium 10 MG TAB PO SCH (21:34)
[2022-05-10] MEDS: Tamsulosin HCl 0.4 MG CAP PO SCH (21:34)
[2022-05-10] MEDS: Acetaminophen 325 MG TAB PO PRN (21:34)
[2022-05-10] MEDS: Lantus 1000 UNITS/10 ML VIAL SC SCH (21:35)
[2022-05-11] MEDS: Polyethylene Glycol 3350 17 GM Packet PO PRN (00:03)
[2022-05-11] MEDS: Carvedilol 6.25 MG TAB PO SCH ×2 (08:29→17:13)
[2022-05-11] MEDS: Potassium Chloride 10 MEQ TAB PO SCH ×2 (08:29→17:13)
[2022-05-11] MEDS: Aspirin 81 mg Enteric Coated Tablet PO SCH (08:29)
[2022-05-11] MEDS: Finasteride 5 MG TAB PO SCH (08:29)
[2022-05-11] MEDS: Furosemide 40 MG TAB PO SCH ×2 (08:29→14:05)
[2022-05-11] MEDS: Atorvastatin Calcium 10 MG TAB PO SCH (21:34)
[2022-05-11] MEDS: Acetaminophen 325 MG TAB PO PRN (21:34)
[2022-05-11] MEDS: Lantus 1000 UNITS/10 ML VIAL SC SCH (21:34)
[2022-05-11] MEDS: Tamsulosin HCl 0.4 MG CAP PO SCH (21:34)
[2022-05-12] MEDS: Carvedilol 6.25 MG TAB PO SCH ×2 (08:42→17:35)
[2022-05-12] MEDS: Furosemide 40 MG TAB PO SCH ×2 (08:42→14:28)
[2022-05-12] MEDS: Aspirin 81 mg Enteric Coated Tablet PO SCH (08:42)
[2022-05-12] MEDS: Potassium Chloride 10 MEQ TAB PO SCH ×2 (08:42→17:34)
[2022-05-12] MEDS: Finasteride 5 MG TAB PO SCH (08:42)
[2022-05-12] MEDS: Tamsulosin HCl 0.4 MG CAP PO SCH (20:49)
[2022-05-12] MEDS: Acetaminophen 325 MG TAB PO PRN (20:49)
[2022-05-12] MEDS: Atorvastatin Calcium 10 MG TAB PO SCH (20:49)
[2022-05-12] MEDS: Lantus 1000 UNITS/10 ML VIAL SC SCH (20:50)
[2022-05-13 05:16] LABS: #Basophils 0.1 thou/uL (0.0-0.2); #Eosinphils 0.2 thou/uL (0.0-0.7); #Lymphocytes 1.1 thou/uL (1.20-3.40); #Monocytes 0.5 thou/uL (0.11-0.59); #Neutrophils 3.7 thou/uL (1.40-6.50); %Basophils 1.6 % (0.0-1.0); %Lymphocytes 20.2 % (21.0-51.0); %Neutrophils 66.2 % (42.0-75.0); Hemoglobin 12.8 g/dL (14.0-18.0); Mean Corpuscular HGB CONC 29.9 g/dL (32.0-36.0); Mean Corpuscular Volume 90.3 fL (78.0-98.0); Mean Platelet Volume 14.2 fL (7.4-10.4); Platelet Count 77 thou/uL (130-400); RBC Distribution Width 15.8 % (11.5-14.5); Red Blood Cell (RBC) Count 4.73 mill/uL (4.70-6.10); White Blood Cell (WBC) Count 5.6 thou/uL (4.8-10.8)
[2022-05-13 05:34] LABS: Anion Gap 19 mmol/L (10-20); BUN (Urea Nitrogen) 79 mg/dL (8.4-25.7); Calc. Creatinine Clearance 20 mL/min (70-130); Calcium 8.6 mg/dL (7.8-10.44); Carbon Dioxide 28 mmol/L (23-31); Chloride 93 mmol/L (98-107); Estimated GFR 18; Glucose 157 mg/dL (83-110); Potassium 3.8 mmol/L (3.5-5.1); Sodium 136 mmol/L (136-145)
[2022-05-13] MEDS: Furosemide 40 MG TAB PO SCH ×2 (08:12→13:45)
[2022-05-13] MEDS: Carvedilol 6.25 MG TAB PO SCH ×2 (08:12→17:05)
[2022-05-13] MEDS: Finasteride 5 MG TAB PO SCH (08:12)
[2022-05-13] MEDS: Potassium Chloride 10 MEQ TAB PO SCH ×2 (08:12→17:05)
[2022-05-13] MEDS: Aspirin 81 mg Enteric Coated Tablet PO SCH (08:12)
[2022-05-13] MEDS: Tamsulosin HCl 0.4 MG CAP PO SCH (21:30)
[2022-05-13] MEDS: Atorvastatin Calcium 10 MG TAB PO SCH (21:30)
[2022-05-13] MEDS: Acetaminophen 325 MG TAB PO PRN (21:30)
[2022-05-13] MEDS: Lantus 1000 UNITS/10 ML VIAL SC SCH (21:31)
[2022-05-14] MEDS: Carvedilol 6.25 MG TAB PO SCH ×2 (07:51→17:06)
[2022-05-14] MEDS: Furosemide 40 MG TAB PO SCH ×2 (07:51→14:40)
[2022-05-14] MEDS: Potassium Chloride 10 MEQ TAB PO SCH ×2 (07:51→17:06)
[2022-05-14] MEDS: Aspirin 81 mg Enteric Coated Tablet PO SCH (07:51)
[2022-05-14] MEDS: Finasteride 5 MG TAB PO SCH (07:51)
[2022-05-14] MEDS: Tamsulosin HCl 0.4 MG CAP PO SCH (20:45)
[2022-05-14] MEDS: Atorvastatin Calcium 10 MG TAB PO SCH (20:45)
[2022-05-14] MEDS: Acetaminophen 325 MG TAB PO PRN (20:45)
[2022-05-14] MEDS: Lantus 1000 UNITS/10 ML VIAL SC SCH (20:46)
[2022-05-15] MEDS: Furosemide 40 MG TAB PO SCH ×2 (08:22→14:34)
[2022-05-15] MEDS: Aspirin 81 mg Enteric Coated Tablet PO SCH (08:22)
[2022-05-15] MEDS: Carvedilol 6.25 MG TAB PO SCH ×2 (08:22→17:10)
[2022-05-15] MEDS: Finasteride 5 MG TAB PO SCH (08:23)
[2022-05-15] MEDS: Potassium Chloride 10 MEQ TAB PO SCH ×2 (08:25→17:10)
[2022-05-15] MEDS: Acetaminophen 325 MG TAB PO PRN (21:53)
[2022-05-15] MEDS: Tamsulosin HCl 0.4 MG CAP PO SCH (21:53)
[2022-05-15] MEDS: Atorvastatin Calcium 10 MG TAB PO SCH (21:53)
[2022-05-15] MEDS: Lantus 1000 UNITS/10 ML VIAL SC SCH (21:53)
[2022-05-16] MEDS: Furosemide 40 MG TAB PO SCH ×2 (08:20→14:13)
[2022-05-16] MEDS: Carvedilol 6.25 MG TAB PO SCH ×2 (08:20→17:23)
[2022-05-16] MEDS: Potassium Chloride 10 MEQ TAB PO SCH ×2 (08:20→17:23)
[2022-05-16] MEDS: Aspirin 81 mg Enteric Coated Tablet PO SCH (08:20)
[2022-05-16] MEDS: Finasteride 5 MG TAB PO SCH (08:20)
[2022-05-16] MEDS: Tamsulosin HCl 0.4 MG CAP PO SCH (21:22)
[2022-05-16] MEDS: Atorvastatin Calcium 10 MG TAB PO SCH (21:22)
[2022-05-16] MEDS: Lantus 1000 UNITS/10 ML VIAL SC SCH (21:23)
[2022-05-17] MEDS: Finasteride 5 MG TAB PO SCH (08:17)
[2022-05-17] MEDS: Carvedilol 6.25 MG TAB PO SCH ×2 (08:17→17:09)
[2022-05-17] MEDS: Potassium Chloride 10 MEQ TAB PO SCH ×2 (08:17→17:09)
[2022-05-17] MEDS: Furosemide 40 MG TAB PO SCH ×2 (08:17→15:22)
[2022-05-17] MEDS: Aspirin 81 mg Enteric Coated Tablet PO SCH (08:17)
[2022-05-17] MEDS: Acetaminophen 325 MG TAB PO PRN ×2 (17:08→21:48)
[2022-05-17] MEDS: Tamsulosin HCl 0.4 MG CAP PO SCH (21:49)
[2022-05-17] MEDS: Atorvastatin Calcium 10 MG TAB PO SCH (21:49)
[2022-05-17] MEDS: Lantus 1000 UNITS/10 ML VIAL SC SCH (21:49)
[2022-05-18] MEDS: Potassium Chloride 10 MEQ TAB PO SCH ×2 (09:08→17:01)
[2022-05-18] MEDS: Furosemide 40 MG TAB PO SCH ×2 (09:08→14:30)
[2022-05-18] MEDS: Finasteride 5 MG TAB PO SCH (09:08)
[2022-05-18] MEDS: Aspirin 81 mg Enteric Coated Tablet PO SCH (09:08)
[2022-05-18] MEDS: Carvedilol 6.25 MG TAB PO SCH ×2 (09:08→17:01)
[2022-05-18] MEDS: Lantus 1000 UNITS/10 ML VIAL SC SCH (21:34)
[2022-05-18] MEDS: Atorvastatin Calcium 10 MG TAB PO SCH (21:34)
[2022-05-18] MEDS: Tamsulosin HCl 0.4 MG CAP PO SCH (21:34)
[2022-05-19] MEDS: Furosemide 40 MG TAB PO SCH ×2 (08:27→13:47)
[2022-05-19] MEDS: Potassium Chloride 10 MEQ TAB PO SCH ×2 (08:27→17:20)
[2022-05-19] MEDS: Aspirin 81 mg Enteric Coated Tablet PO SCH (08:27)
[2022-05-19] MEDS: Carvedilol 6.25 MG TAB PO SCH ×2 (08:27→17:20)
[2022-05-19] MEDS: Finasteride 5 MG TAB PO SCH (08:27)
[2022-05-19 12:06] VITALS: BMI 27.7
[2022-05-19] MEDS: Acetaminophen 325 MG TAB PO PRN (21:22)
[2022-05-19] MEDS: Tamsulosin HCl 0.4 MG CAP PO SCH (21:23)
[2022-05-19] MEDS: Atorvastatin Calcium 10 MG TAB PO SCH (21:23)
[2022-05-19] MEDS: Lantus 1000 UNITS/10 ML VIAL SC SCH (21:25)
[2022-05-20] MEDS: Finasteride 5 MG TAB PO SCH (08:07)
[2022-05-20] MEDS: Potassium Chloride 10 MEQ TAB PO SCH ×2 (08:07→17:12)
[2022-05-20] MEDS: Aspirin 81 mg Enteric Coated Tablet PO SCH (08:07)
[2022-05-20] MEDS: Furosemide 40 MG TAB PO SCH ×2 (08:07→14:35)
[2022-05-20] MEDS: Carvedilol 6.25 MG TAB PO SCH ×2 (08:07→17:12)
[2022-05-20] MEDS: Lantus 1000 UNITS/10 ML VIAL SC SCH (20:33)
[2022-05-20] MEDS: Atorvastatin Calcium 10 MG TAB PO SCH (20:34)
[2022-05-20] MEDS: Acetaminophen 325 MG TAB PO PRN (20:34)
[2022-05-20] MEDS: Tamsulosin HCl 0.4 MG CAP PO SCH (20:34)
[2022-05-20] MEDS ORDERED: Mirtazapine 15 MG TAB PO SCH (21:00)
[2022-05-21 05:37] LABS: #Basophils 0.1 thou/uL (0.0-0.2); #Eosinphils 0.2 thou/uL (0.0-0.7); #Lymphocytes 1.3 thou/uL (1.20-3.40); #Monocytes 0.4 thou/uL (0.11-0.59); #Neutrophils 2.9 thou/uL (1.40-6.50); %Basophils 1.4 % (0.0-1.0); %Eosinophils 3.6 % (0.0-10.0); %Monocytes 8.8 % (0.0-10.0); %Neutrophils 59.1 % (42.0-75.0); Hemoglobin 12.2 g/dL (14.0-18.0); Mean Corpuscular HGB CONC 31.2 g/dL (32.0-36.0); Mean Corpuscular Hemoglobin 27.3 pg (27.0-31.0); Mean Corpuscular Volume 87.6 fL (78.0-98.0); Mean Platelet Volume 13.4 fL (7.4-10.4); Platelet Count 63 thou/uL (130-400); Platelet Morphology Comment Appears Decreased; RBC Distribution Width 15.2 % (11.5-14.5); RBC Morphology Normal; Red Blood Cell (RBC) Count 4.48 mill/uL (4.70-6.10); White Blood Cell (WBC) Count 4.9 thou/uL (4.8-10.8)
[2022-05-21 05:42] LABS: Anion Gap 14 mmol/L (10-20); BUN (Urea Nitrogen) 68 mg/dL (8.4-25.7); Calc. Creatinine Clearance 22 mL/min (70-130); Calcium 8.6 mg/dL (7.8-10.44); Carbon Dioxide 29 mmol/L (23-31); Chloride 98 mmol/L (98-107); Estimated GFR 20; Glucose 82 mg/dL (83-110); Potassium 3.1 mmol/L (3.5-5.1); Sodium 138 mmol/L (136-145)
[2022-05-21] MEDS ORDERED: Potassium Chloride 20 MEQ TAB PO SCH (08:00)
[2022-05-21] MEDS: Potassium Chloride 10 MEQ TAB PO SCH ×2 (08:27→16:59)
[2022-05-21] MEDS: Carvedilol 6.25 MG TAB PO SCH ×2 (08:28→16:58)
[2022-05-21] MEDS: Aspirin 81 mg Enteric Coated Tablet PO SCH (08:28)
[2022-05-21] MEDS: Furosemide 40 MG TAB PO SCH ×2 (08:28→15:12)
[2022-05-21] MEDS: Finasteride 5 MG TAB PO SCH (08:28)
[2022-05-21] MEDS: Acetaminophen 325 MG TAB PO PRN (20:37)
[2022-05-21] MEDS: Atorvastatin Calcium 10 MG TAB PO SCH (20:37)
[2022-05-21] MEDS: Tamsulosin HCl 0.4 MG CAP PO SCH (20:37)
[2022-05-21] MEDS: Lantus 1000 UNITS/10 ML VIAL SC SCH (20:43)
[2022-05-22] MEDS: Furosemide 40 MG TAB PO SCH ×2 (08:44→15:23)
[2022-05-22] MEDS: Carvedilol 6.25 MG TAB PO SCH ×2 (08:44→17:11)
[2022-05-22] MEDS: Aspirin 81 mg Enteric Coated Tablet PO SCH (08:44)
[2022-05-22] MEDS: Finasteride 5 MG TAB PO SCH (08:44)
[2022-05-22] MEDS: Potassium Chloride 10 MEQ TAB PO SCH ×2 (08:45→17:11)
[2022-05-22] MEDS: Lantus 1000 UNITS/10 ML VIAL SC SCH (20:45)
[2022-05-22] MEDS: Atorvastatin Calcium 10 MG TAB PO SCH (20:45)
[2022-05-22] MEDS: Tamsulosin HCl 0.4 MG CAP PO SCH (20:45)
[2022-05-22] MEDS: Acetaminophen 325 MG TAB PO PRN (20:45)
[2022-05-23] MEDS: Potassium Chloride 10 MEQ TAB PO SCH ×2 (08:12→17:15)
[2022-05-23] MEDS: Carvedilol 6.25 MG TAB PO SCH ×2 (08:12→17:15)
[2022-05-23] MEDS: Furosemide 40 MG TAB PO SCH ×2 (08:12→14:10)
[2022-05-23] MEDS: Aspirin 81 mg Enteric Coated Tablet PO SCH (08:12)
[2022-05-23] MEDS: Finasteride 5 MG TAB PO SCH (08:12)
[2022-05-23 16:18] VITALS: BP 132/81; TEMP 98.3
== END 2022-05-23 18:00 | disposition home health service (06) | DRG 948 ==
LOC: MADMS 05-01 20:05
PROVIDERS: ADMIT Family Medicine; ATTEND Family Medicine
DX: R53.1 Weakness (principal); I50.42 Chronic combined systolic (congestive) and diastolic (congestive) heart failure; I44.2 Atrioventricular block, complete; I13.0 Hypertensive heart and chronic kidney disease with heart failure and stage 1 through stage 4 chronic kidney disease, or unspecified chronic kidney disease; N18.4 Chronic kidney disease, stage 4 (severe); Z20.822 Contact with and (suspected) exposure to COVID-19; R53.81 Other malaise; E11.22 Type 2 diabetes mellitus with diabetic chronic kidney disease; R33.9 Retention of urine, unspecified; D63.1 Anemia in chronic kidney disease; E11.42 Type 2 diabetes mellitus with diabetic polyneuropathy; G25.81 Restless legs syndrome; Z98.41 Cataract extraction status, right eye; Z95.810 Presence of automatic (implantable) cardiac defibrillator; Z86.73 Personal history of transient ischemic attack (TIA), and cerebral infarction without residual deficits; Z98.42 Cataract extraction status, left eye; Z90.49 Acquired absence of other specified parts of digestive tract; Z79.899 Other long term (current) drug therapy; Z79.82 Long term (current) use of aspirin; Z79.4 Long term (current) use of insulin
CPT/HCPCS: 36415; 36416; 80048; 80053; 85025; J1815; U0003; U0005

== ENCOUNTER 2022-11-18 17:43 | Emergency (ER) | payer MEDICARE ==
[2022-11-18 18:48] LABS: ALT (SGPT) 59 U/L (8-55); AST (SGOT) 45 U/L (5-34); Albumin 3.5 g/dL (3.4-4.8); Alkaline Phosphatase 54 U/L (40-110); Anion Gap 26 mmol/L (10-20); Bilirubin, Total 1.1 mg/dL (0.2-1.2); CK (CPK) 350 U/L (30-200); Calc. Creatinine Clearance 0 mL/min (70-130); Calcium 7.3 mg/dL (7.8-10.44); Carbon Dioxide 26 mmol/L (23-31); Chloride 89 mmol/L (98-107); Estimated GFR 13; Globulin 3.4 g/dL (2.4-3.5); Magnesium 2.1 mg/dL (1.6-2.6); Potassium 4.3 mmol/L (3.5-5.1); Protein, Total 6.9 g/dL (5.8-8.1); Sodium 137 mmol/L (136-145)
[2022-11-18] MEDS ORDERED: Furosemide 40 MG/4 ML VIAL ONE (18:54)
[2022-11-18 19:00] LABS: #Lymphocytes 0.5 thou/uL (1.20-3.40); #Monocytes 0.3 thou/uL (0.11-0.59); #Neutrophils 1.7 thou/uL (1.40-6.50); %Basophils 1.4 % (0.0-1.0); %Lymphocytes 20.7 % (21.0-51.0); %Neutrophils 64.9 % (42.0-75.0); Giant Platelets SLIGHT; Hemoglobin 9.1 g/dL (14.0-18.0); Large Platelets SLIGHT; MDiff Complete? YES; Mean Corpuscular HGB CONC 31.4 g/dL (32.0-36.0); Mean Corpuscular Hemoglobin 25.9 pg (27.0-31.0); Mean Corpuscular Volume 82.7 fl (78.0-98.0); Mean Platelet Volume 14.4 fL (7.4-10.4); Platelet Count 84 10x3/uL (130-400); Platelet Morphology Comment Appears Decreased; RBC Distribution Width 20.4 % (11.5-14.5); White Blood Cell (WBC) Count 2.6 10x3/uL (4.8-10.8)
[2022-11-18] MEDS ORDERED: Lactated Ringer's 1,000 ML ONE (19:00)
[2022-11-18 19:05] LABS: Glucose 54 mg/dL (83-110)
[2022-11-18 19:20] LABS: INR-International Normal Ratio 1.3; Prothrombin Time 16.3 sec (12.0-14.7)
[2022-11-18 19:21] LABS: PTT 31.5 sec (22.9-36.1)
[2022-11-18 19:24] LABS: CKMB 9.5 ng/mL (0-6.6)
[2022-11-18 19:35] LABS: BUN (Urea Nitrogen) 182 mg/dL (8.4-25.7)
[2022-11-18] MEDS ORDERED: Aspirin Chewable 81 MG TAB ONE (19:43)
[2022-11-18 20:39] LABS: SARS-CoV-2 NAA Rapid Test Not Detected (NotDetected)
[2022-11-18 21:05] LABS: Bilirubin Negative (Negative); Blood, Urine Negative (Negative); Clarity Clear (Clear); Glucose, Urine (Dipstick) Negative (Negative); Ketone, Urine Negative (Negative); Leukocyte Negative (Negative); Nitrite Negative (Negative); Protein, Urine (Dipstick) Trace mg/dL (Neg-Trace); Specific Gravity, Urine 1.015 (1.005-1.030); Urobilinogen 0.2 mg/dL (Less than 2); pH, Urine 6.5 (5.0-9.0)
== END 2022-11-18 22:40 | disposition short-term general hospital (02) ==
LOC: MADERS 17:43
DX: I21.4 Non-ST elevation (NSTEMI) myocardial infarction (principal); I13.0 Hypertensive heart and chronic kidney disease with heart failure and stage 1 through stage 4 chronic kidney disease, or unspecified chronic kidney disease; E11.649 Type 2 diabetes mellitus with hypoglycemia without coma; N18.9 Chronic kidney disease, unspecified; N17.9 Acute kidney failure, unspecified; D61.818 Other pancytopenia; Z20.822 Contact with and (suspected) exposure to COVID-19
CPT/HCPCS: 0240U; 71045; 80053; 81003; 82550; 82553; 83605; 83735; 83880; 84484 ×2; 85025; 85610; 85730; 87040; 87086; 93005; 94760; 96374; J1940; J7120

== ENCOUNTER 2022-11-25 17:49 | Inpatient (IN) | payer MEDICARE ==
[2022-11-25] MEDS ORDERED: Polyethylene Glycol 3350 17 GM Packet PO PRN (18:17)
[2022-11-25] MEDS: Gabapentin 300 MG CAP PO SCH (22:14)
[2022-11-25] MEDS: Tamsulosin HCl 0.4 MG CAP PO SCH (22:14)
[2022-11-25] MEDS: Acetaminophen 325 MG TAB PO PRN (22:15)
[2022-11-26] MEDS: Carvedilol 3.125 MG TAB PO SCH ×2 (08:39→17:12)
[2022-11-26] MEDS: Acetaminophen 325 MG TAB PO PRN (08:40)
[2022-11-26] MEDS: Ferrous Gluconate 324 MG TAB PO SCH (08:40)
[2022-11-26] MEDS: Metolazone 5 MG TAB PO SCH (08:40)
[2022-11-26] MEDS: Finasteride 5 MG TAB PO SCH (08:40)
[2022-11-26] MEDS: Furosemide 40 MG TAB PO SCH ×2 (08:40→14:20)
[2022-11-26] MEDS: Aspirin 81 mg Enteric Coated Tablet PO SCH (08:40)
[2022-11-26] MEDS: Potassium Chloride 20 MEQ TAB PO SCH ×2 (08:40→17:12)
[2022-11-26] MEDS: EPOETIN ALFA-EPBX (ESRD) 10,000 UNIT/ML VIAL SC SCH (08:50)
[2022-11-26] MEDS ORDERED: Dextrose 5% in Water 1,000 ML IV PRN (16:45)
[2022-11-26] MEDS ORDERED: Dextrose 50% Abboject 50 ML SYRINGE IVP PRN (16:45)
[2022-11-26] MEDS ORDERED: Simethicone Chewable 80 MG TAB PO PRN (17:53)
[2022-11-26] MEDS: Lantus 1000 UNITS/10 ML VIAL SC SCH (20:14)
[2022-11-26] MEDS: Atorvastatin Calcium 10 MG TAB PO SCH (20:14)
[2022-11-26] MEDS: Tamsulosin HCl 0.4 MG CAP PO SCH (20:14)
[2022-11-26] MEDS: Gabapentin 300 MG CAP PO SCH (20:14)
[2022-11-27 05:32] LABS: Anion Gap 21 mmol/L (10-20); Calc. Creatinine Clearance 16 mL/min (70-130); Calcium 8.5 mg/dL (7.8-10.44); Carbon Dioxide 32 mmol/L (23-31); Chloride 92 mmol/L (98-107); Estimated GFR 13; Glucose 220 mg/dL (83-110); Potassium 3.6 mmol/L (3.5-5.1); Sodium 141 mmol/L (136-145)
[2022-11-27 05:38] LABS: #Basophils 0.1 thou/uL (0.0-0.2); #Lymphocytes 0.5 thou/uL (1.20-3.40); #Monocytes 0.3 thou/uL (0.11-0.59); #Neutrophils 2.6 thou/uL (1.40-6.50); %Basophils 1.8 % (0.0-1.0); %Eosinophils 0.1 % (0.0-10.0); %Lymphocytes 14.5 % (21.0-51.0); %Monocytes 9.1 % (0.0-10.0); %Neutrophils 74.4 % (42.0-75.0); Hemoglobin 9.2 g/dL (14.0-18.0); Hypochromia MODERATE=16-30 cells (100X) (0-5/hpf); MDiff Complete? YES; Mean Corpuscular HGB CONC 30.6 g/dL (32.0-36.0); Mean Corpuscular Hemoglobin 25.9 pg (27.0-31.0); Mean Corpuscular Volume 84.6 fl (78.0-98.0); Platelet Count 60 10x3/uL (130-400); Platelet Morphology Comment Appears Decreased; Polychromasia SLIGHT = 2-3 cells (100X) (0-2/hpf); RBC Distribution Width 20.3 % (11.5-14.5); Red Blood Cell (RBC) Count 3.54 mill/uL (4.70-6.10); Reflex for Review?? NO; White Blood Cell (WBC) Count 3.6 10x3/uL (4.8-10.8)
[2022-11-27 06:02] LABS: BUN (Urea Nitrogen) 139 mg/dL (8.4-25.7)
[2022-11-27] MEDS: Aspirin 81 mg Enteric Coated Tablet PO SCH (09:23)
[2022-11-27] MEDS: Furosemide 40 MG TAB PO SCH ×2 (09:23→14:45)
[2022-11-27] MEDS: Carvedilol 3.125 MG TAB PO SCH ×2 (09:24→17:11)
[2022-11-27] MEDS: Finasteride 5 MG TAB PO SCH (09:24)
[2022-11-27] MEDS: Potassium Chloride 20 MEQ TAB PO SCH ×2 (09:24→17:11)
[2022-11-27] MEDS: Ferrous Gluconate 324 MG TAB PO SCH (09:24)
[2022-11-27] MEDS: Gabapentin 300 MG CAP PO SCH (20:52)
[2022-11-27] MEDS: Lantus 1000 UNITS/10 ML VIAL SC SCH (20:53)
[2022-11-27] MEDS: Atorvastatin Calcium 10 MG TAB PO SCH (20:53)
[2022-11-27] MEDS: Tamsulosin HCl 0.4 MG CAP PO SCH (20:53)
[2022-11-28] MEDS: Acetaminophen 325 MG TAB PO PRN (08:11)
[2022-11-28] MEDS: Finasteride 5 MG TAB PO SCH (08:12)
[2022-11-28] MEDS: Ferrous Gluconate 324 MG TAB PO SCH (08:12)
[2022-11-28] MEDS: Aspirin 81 mg Enteric Coated Tablet PO SCH (08:12)
[2022-11-28] MEDS: Metolazone 5 MG TAB PO SCH (08:12)
[2022-11-28] MEDS: Furosemide 40 MG TAB PO SCH ×2 (08:13→15:23)
[2022-11-28] MEDS: Carvedilol 3.125 MG TAB PO SCH ×2 (08:13→18:11)
[2022-11-28] MEDS: Potassium Chloride 20 MEQ TAB PO SCH ×2 (08:13→18:11)
[2022-11-28] MEDS: Atorvastatin Calcium 10 MG TAB PO SCH (20:48)
[2022-11-28] MEDS: Lantus 1000 UNITS/10 ML VIAL SC SCH (20:48)
[2022-11-28] MEDS: Gabapentin 300 MG CAP PO SCH (20:48)
[2022-11-28] MEDS: Tamsulosin HCl 0.4 MG CAP PO SCH (20:49)
[2022-11-29] MEDS: Potassium Chloride 20 MEQ TAB PO SCH ×2 (09:03→17:47)
[2022-11-29] MEDS: Furosemide 40 MG TAB PO SCH ×2 (09:03→15:30)
[2022-11-29] MEDS: Carvedilol 3.125 MG TAB PO SCH ×2 (09:04→17:47)
[2022-11-29] MEDS: Finasteride 5 MG TAB PO SCH (09:04)
[2022-11-29] MEDS: Ferrous Gluconate 324 MG TAB PO SCH (09:04)
[2022-11-29] MEDS: Aspirin 81 mg Enteric Coated Tablet PO SCH (09:04)
[2022-11-29] MEDS: Atorvastatin Calcium 10 MG TAB PO SCH (20:34)
[2022-11-29] MEDS: Tamsulosin HCl 0.4 MG CAP PO SCH (20:34)
[2022-11-29] MEDS: Gabapentin 300 MG CAP PO SCH (20:34)
[2022-11-29] MEDS: Lantus 1000 UNITS/10 ML VIAL SC SCH (20:37)
[2022-11-30] MEDS: HumaLOG 300 UNITS/3 ML VIAL SC PRN ×5 (00:50→21:47)
[2022-11-30] MEDS: Finasteride 5 MG TAB PO SCH (09:10)
[2022-11-30] MEDS: Ferrous Gluconate 324 MG TAB PO SCH (09:10)
[2022-11-30] MEDS: Aspirin 81 mg Enteric Coated Tablet PO SCH (09:10)
[2022-11-30] MEDS: Carvedilol 3.125 MG TAB PO SCH ×2 (09:10→17:23)
[2022-11-30] MEDS: Potassium Chloride 20 MEQ TAB PO SCH ×4 (09:11→17:23)
[2022-11-30] MEDS: Furosemide 40 MG TAB PO SCH ×2 (09:11→16:03)
[2022-11-30] MEDS: Gabapentin 300 MG CAP PO SCH (21:45)
[2022-11-30] MEDS: Atorvastatin Calcium 10 MG TAB PO SCH (21:46)
[2022-11-30] MEDS: Lantus 1000 UNITS/10 ML VIAL SC SCH (21:46)
[2022-11-30] MEDS: Tamsulosin HCl 0.4 MG CAP PO SCH (21:46)
[2022-12-01] MEDS: Ferrous Gluconate 324 MG TAB PO SCH (10:52)
[2022-12-01] MEDS: Carvedilol 3.125 MG TAB PO SCH ×2 (10:52→17:04)
[2022-12-01] MEDS: Aspirin 81 mg Enteric Coated Tablet PO SCH (10:52)
[2022-12-01] MEDS: Potassium Chloride 20 MEQ TAB PO SCH ×2 (10:52→17:03)
[2022-12-01] MEDS: Finasteride 5 MG TAB PO SCH (10:53)
[2022-12-01] MEDS: Furosemide 40 MG TAB PO SCH ×2 (10:54→14:17)
[2022-12-01] MEDS: Metolazone 5 MG TAB PO SCH (10:54)
[2022-12-01] MEDS: HumaLOG 300 UNITS/3 ML VIAL SC PRN ×3 (12:41→22:30)
[2022-12-01] MEDS: Acetaminophen 325 MG TAB PO PRN (22:27)
[2022-12-01] MEDS: Gabapentin 300 MG CAP PO SCH (22:28)
[2022-12-01] MEDS: Tamsulosin HCl 0.4 MG CAP PO SCH (22:28)
[2022-12-01] MEDS: Lantus 1000 UNITS/10 ML VIAL SC SCH (22:29)
[2022-12-01] MEDS: Atorvastatin Calcium 10 MG TAB PO SCH (22:29)
[2022-12-02] MEDS: Potassium Chloride 20 MEQ TAB PO SCH ×2 (10:04→17:17)
[2022-12-02] MEDS: Ferrous Gluconate 324 MG TAB PO SCH (10:05)
[2022-12-02] MEDS: Aspirin 81 mg Enteric Coated Tablet PO SCH (10:05)
[2022-12-02] MEDS: Carvedilol 3.125 MG TAB PO SCH ×2 (10:05→17:17)
[2022-12-02] MEDS: Finasteride 5 MG TAB PO SCH (10:05)
[2022-12-02] MEDS: Furosemide 40 MG TAB PO SCH ×2 (10:05→15:29)
[2022-12-02] MEDS: HumaLOG 300 UNITS/3 ML VIAL SC PRN (12:17)
[2022-12-02] MEDS: Tamsulosin HCl 0.4 MG CAP PO SCH (21:42)
[2022-12-02] MEDS: Gabapentin 300 MG CAP PO SCH (21:42)
[2022-12-02] MEDS: Atorvastatin Calcium 10 MG TAB PO SCH (21:42)
[2022-12-02] MEDS: Acetaminophen 325 MG TAB PO PRN (21:43)
[2022-12-02] MEDS: Lantus 1000 UNITS/10 ML VIAL SC SCH (21:43)
[2022-12-03] MEDS: Aspirin 81 mg Enteric Coated Tablet PO SCH (08:47)
[2022-12-03] MEDS: Carvedilol 3.125 MG TAB PO SCH ×2 (08:47→17:05)
[2022-12-03] MEDS: Ferrous Gluconate 324 MG TAB PO SCH (08:47)
[2022-12-03] MEDS: Finasteride 5 MG TAB PO SCH (08:47)
[2022-12-03] MEDS: Furosemide 40 MG TAB PO SCH (08:47)
[2022-12-03] MEDS: Metolazone 5 MG TAB PO SCH (08:47)
[2022-12-03] MEDS: Potassium Chloride 20 MEQ TAB PO SCH ×2 (08:47→17:08)
[2022-12-03] MEDS ORDERED: Potassium Chloride 20 MEQ TAB ONE ×2 (09:09→15:37)
[2022-12-03] MEDS ORDERED: Carvedilol 3.125 MG TAB ONE ×2 (09:09→15:36)
[2022-12-03] MEDS ORDERED: Tamsulosin HCl 0.4 MG CAP ONE ×2 (09:09→21:26)
[2022-12-03] MEDS ORDERED: Gabapentin 300 MG CAP ONE ×2 (09:09→21:28)
[2022-12-03] MEDS ORDERED: Furosemide 40 MG TAB ONE ×2 (09:09→15:37)
[2022-12-03] MEDS ORDERED: Atorvastatin Calcium 10 MG TAB ONE ×2 (09:09→21:27)
[2022-12-03] MEDS: EPOETIN ALFA-EPBX (ESRD) 10,000 UNIT/ML VIAL SC SCH (09:26)
[2022-12-03] MEDS: HumaLOG 300 UNITS/3 ML VIAL SC PRN ×2 (12:06→17:10)
[2022-12-03] MEDS: Acetaminophen 325 MG TAB PO PRN (21:44)
[2022-12-03] MEDS: Lantus 1000 UNITS/10 ML VIAL SC SCH (21:44)
[2022-12-04] MEDS: HumaLOG 300 UNITS/3 ML VIAL SC PRN ×3 (08:47→17:14)
[2022-12-04] MEDS: Carvedilol 3.125 MG TAB PO SCH ×2 (08:49→17:16)
[2022-12-04] MEDS: Finasteride 5 MG TAB PO SCH (08:50)
[2022-12-04] MEDS: Furosemide 40 MG TAB PO SCH ×3 (08:50→14:15)
[2022-12-04] MEDS: Aspirin 81 mg Enteric Coated Tablet PO SCH (08:51)
[2022-12-04] MEDS: Potassium Chloride 20 MEQ TAB PO SCH ×2 (08:51→17:16)
[2022-12-04] MEDS: Ferrous Gluconate 324 MG TAB PO SCH (08:52)
[2022-12-04] MEDS: Tamsulosin HCl 0.4 MG CAP PO SCH ×2 (10:18→20:51)
[2022-12-04] MEDS: Gabapentin 300 MG CAP PO SCH ×2 (10:18→20:55)
[2022-12-04] MEDS: Atorvastatin Calcium 10 MG TAB PO SCH ×2 (10:18→20:51)
[2022-12-04] MEDS: Lantus 1000 UNITS/10 ML VIAL SC SCH (20:56)
[2022-12-05] MEDS: Potassium Chloride 20 MEQ TAB PO SCH ×2 (07:41→17:01)
[2022-12-05] MEDS: Ferrous Gluconate 324 MG TAB PO SCH (07:41)
[2022-12-05] MEDS: Carvedilol 3.125 MG TAB PO SCH ×2 (07:41→17:01)
[2022-12-05] MEDS: Acetaminophen 325 MG TAB PO PRN (08:28)
[2022-12-05] MEDS: Aspirin 81 mg Enteric Coated Tablet PO SCH (08:28)
[2022-12-05] MEDS: Furosemide 40 MG TAB PO SCH ×2 (08:28→14:45)
[2022-12-05] MEDS: Finasteride 5 MG TAB PO SCH (08:28)
[2022-12-05] MEDS: Metolazone 5 MG TAB PO SCH (08:28)
[2022-12-05] MEDS: HumaLOG 300 UNITS/3 ML VIAL SC PRN ×4 (08:30→21:33)
[2022-12-05] MEDS: Tamsulosin HCl 0.4 MG CAP PO SCH (21:31)
[2022-12-05] MEDS: Atorvastatin Calcium 10 MG TAB PO SCH (21:31)
[2022-12-05] MEDS: Gabapentin 300 MG CAP PO SCH (21:32)
[2022-12-05] MEDS: Lantus 1000 UNITS/10 ML VIAL SC SCH (21:32)
[2022-12-06 05:33] LABS: #Basophils 0.1 thou/uL (0.0-0.2); #Eosinphils 0.1 thou/uL (0.0-0.7); #Lymphocytes 0.7 thou/uL (1.20-3.40); #Monocytes 0.3 thou/uL (0.11-0.59); #Neutrophils 3.1 thou/uL (1.40-6.50); %Basophils 1.5 % (0.0-1.0); %Eosinophils 1.3 % (0.0-10.0); %Lymphocytes 17.5 % (21.0-51.0); %Monocytes 6.5 % (0.0-10.0); %Neutrophils 73.2 % (42.0-75.0); Hemoglobin 10.6 g/dL (14.0-18.0); Hypochromia SLIGHT = 6-15 cells (100X) (0-5/hpf); MDiff Complete? YES; Mean Corpuscular HGB CONC 30.6 g/dL (32.0-36.0); Mean Corpuscular Hemoglobin 25.9 pg (27.0-31.0); Mean Corpuscular Volume 84.7 fl (78.0-98.0); Mean Platelet Volume 10.4 fL (7.4-10.4); Microcytosis SLIGHT = 6-15 cells (100X) (0-5/hpf); Platelet Count 94 10x3/uL (130-400); RBC Distribution Width 20.2 % (11.5-14.5); White Blood Cell (WBC) Count 4.2 10x3/uL (4.8-10.8)
[2022-12-06 05:37] LABS: ALT (SGPT) 16 U/L (8-55); AST (SGOT) 22 U/L (5-34); Albumin 3.3 g/dL (3.4-4.8); Alkaline Phosphatase 49 U/L (40-110); Anion Gap 22 mmol/L (10-20); Bilirubin, Total 0.7 mg/dL (0.2-1.2); Calc. Creatinine Clearance 17 mL/min (70-130); Calcium 9.2 mg/dL (7.8-10.44); Carbon Dioxide 29 mmol/L (23-31); Chloride 93 mmol/L (98-107); Estimated GFR 15; Globulin 3.7 g/dL (2.4-3.5); Glucose 206 mg/dL (83-110); Potassium 3.7 mmol/L (3.5-5.1); Sodium 140 mmol/L (136-145)
[2022-12-06 06:07] LABS: BUN (Urea Nitrogen) 169 mg/dL (8.4-25.7)
[2022-12-06] MEDS: Carvedilol 3.125 MG TAB PO SCH ×2 (08:44→17:12)
[2022-12-06] MEDS: Finasteride 5 MG TAB PO SCH (08:44)
[2022-12-06] MEDS: Furosemide 40 MG TAB PO SCH ×2 (08:44→13:29)
[2022-12-06] MEDS: Aspirin 81 mg Enteric Coated Tablet PO SCH (08:45)
[2022-12-06] MEDS: HumaLOG 300 UNITS/3 ML VIAL SC PRN ×2 (08:45→13:30)
[2022-12-06] MEDS: Ferrous Gluconate 324 MG TAB PO SCH (08:45)
[2022-12-06] MEDS: Potassium Chloride 20 MEQ TAB PO SCH ×2 (08:45→17:12)
[2022-12-06] MEDS: Tamsulosin HCl 0.4 MG CAP PO SCH (21:10)
[2022-12-06] MEDS: Atorvastatin Calcium 10 MG TAB PO SCH (21:10)
[2022-12-06] MEDS: Gabapentin 300 MG CAP PO SCH (21:10)
[2022-12-06] MEDS: Lantus 1000 UNITS/10 ML VIAL SC SCH (21:11)
[2022-12-07] MEDS: Finasteride 5 MG TAB PO SCH (08:31)
[2022-12-07] MEDS: Acetaminophen 325 MG TAB PO PRN (08:32)
[2022-12-07] MEDS: Carvedilol 3.125 MG TAB PO SCH ×2 (08:32→17:10)
[2022-12-07] MEDS: Aspirin 81 mg Enteric Coated Tablet PO SCH (08:32)
[2022-12-07] MEDS: Furosemide 40 MG TAB PO SCH ×2 (08:32→15:03)
[2022-12-07] MEDS: Potassium Chloride 20 MEQ TAB PO SCH ×2 (08:32→17:10)
[2022-12-07] MEDS: Ferrous Gluconate 324 MG TAB PO SCH (08:32)
[2022-12-07] MEDS: HumaLOG 300 UNITS/3 ML VIAL SC PRN (17:14)
[2022-12-07] MEDS: Gabapentin 300 MG CAP PO SCH (21:09)
[2022-12-07] MEDS: Atorvastatin Calcium 10 MG TAB PO SCH (21:09)
[2022-12-07] MEDS: Tamsulosin HCl 0.4 MG CAP PO SCH (21:10)
[2022-12-07] MEDS: Lantus 1000 UNITS/10 ML VIAL SC SCH (21:59)
[2022-12-08] MEDS: Furosemide 40 MG TAB PO SCH ×2 (07:52→15:09)
[2022-12-08] MEDS: Metolazone 5 MG TAB PO SCH (07:52)
[2022-12-08] MEDS: Finasteride 5 MG TAB PO SCH (07:53)
[2022-12-08] MEDS: Ferrous Gluconate 324 MG TAB PO SCH (07:53)
[2022-12-08] MEDS: Potassium Chloride 20 MEQ TAB PO SCH ×2 (07:53→17:01)
[2022-12-08] MEDS: HumaLOG 300 UNITS/3 ML VIAL SC PRN ×4 (07:53→21:55)
[2022-12-08] MEDS: Aspirin 81 mg Enteric Coated Tablet PO SCH (07:53)
[2022-12-08] MEDS: Carvedilol 3.125 MG TAB PO SCH ×2 (07:53→17:01)
[2022-12-08] MEDS: Gabapentin 300 MG CAP PO SCH (21:52)
[2022-12-08] MEDS: Atorvastatin Calcium 10 MG TAB PO SCH (21:52)
[2022-12-08] MEDS: Tamsulosin HCl 0.4 MG CAP PO SCH (21:52)
[2022-12-08] MEDS: Lantus 1000 UNITS/10 ML VIAL SC SCH (21:53)
[2022-12-08] MEDS: Acetaminophen 325 MG TAB PO PRN (21:56)
[2022-12-09] MEDS: Potassium Chloride 20 MEQ TAB PO SCH ×2 (08:39→17:04)
[2022-12-09] MEDS: Ferrous Gluconate 324 MG TAB PO SCH (08:39)
[2022-12-09] MEDS: Furosemide 40 MG TAB PO SCH ×2 (08:39→17:05)
[2022-12-09] MEDS: Finasteride 5 MG TAB PO SCH (08:39)
[2022-12-09] MEDS: Carvedilol 3.125 MG TAB PO SCH ×2 (08:39→17:04)
[2022-12-09] MEDS: Aspirin 81 mg Enteric Coated Tablet PO SCH (08:40)
[2022-12-09] MEDS: HumaLOG 300 UNITS/3 ML VIAL SC PRN (11:57)
[2022-12-09] MEDS: Tamsulosin HCl 0.4 MG CAP PO SCH (20:34)
[2022-12-09] MEDS: Lantus 1000 UNITS/10 ML VIAL SC SCH (20:34)
[2022-12-09] MEDS: Atorvastatin Calcium 10 MG TAB PO SCH (20:34)
[2022-12-09] MEDS: Gabapentin 300 MG CAP PO SCH (20:34)
[2022-12-10] MEDS: Ferrous Gluconate 324 MG TAB PO SCH (09:54)
[2022-12-10] MEDS: Metolazone 5 MG TAB PO SCH (09:54)
[2022-12-10] MEDS: Carvedilol 3.125 MG TAB PO SCH ×2 (09:54→17:26)
[2022-12-10] MEDS: Furosemide 40 MG TAB PO SCH ×2 (09:54→14:28)
[2022-12-10] MEDS: Potassium Chloride 20 MEQ TAB PO SCH ×2 (09:54→17:26)
[2022-12-10] MEDS: Finasteride 5 MG TAB PO SCH (09:54)
[2022-12-10] MEDS: Aspirin 81 mg Enteric Coated Tablet PO SCH (09:54)
[2022-12-10] MEDS: EPOETIN ALFA-EPBX (ESRD) 10,000 UNIT/ML VIAL SC SCH (09:56)
[2022-12-10] MEDS: HumaLOG 300 UNITS/3 ML VIAL SC PRN ×2 (12:21→17:28)
[2022-12-10] MEDS: Tamsulosin HCl 0.4 MG CAP PO SCH (20:59)
[2022-12-10] MEDS: Gabapentin 300 MG CAP PO SCH (20:59)
[2022-12-10] MEDS: Lantus 1000 UNITS/10 ML VIAL SC SCH (21:00)
[2022-12-10] MEDS: Atorvastatin Calcium 10 MG TAB PO SCH (21:00)
[2022-12-11] MEDS: Ferrous Gluconate 324 MG TAB PO SCH (08:41)
[2022-12-11] MEDS: Carvedilol 3.125 MG TAB PO SCH ×2 (08:41→17:21)
[2022-12-11] MEDS: Finasteride 5 MG TAB PO SCH (08:41)
[2022-12-11] MEDS: Aspirin 81 mg Enteric Coated Tablet PO SCH (08:41)
[2022-12-11] MEDS: Potassium Chloride 20 MEQ TAB PO SCH ×2 (08:41→17:21)
[2022-12-11] MEDS: Furosemide 40 MG TAB PO SCH ×2 (08:41→13:41)
[2022-12-11] MEDS: HumaLOG 300 UNITS/3 ML VIAL SC PRN ×3 (13:40→21:04)
[2022-12-11] MEDS: Lantus 1000 UNITS/10 ML VIAL SC SCH (21:01)
[2022-12-11] MEDS: Tamsulosin HCl 0.4 MG CAP PO SCH (21:02)
[2022-12-11] MEDS: Gabapentin 300 MG CAP PO SCH (21:02)
[2022-12-11] MEDS: Atorvastatin Calcium 10 MG TAB PO SCH (21:02)
[2022-12-12] MEDS: Furosemide 40 MG TAB PO SCH ×2 (08:28→14:43)
[2022-12-12] MEDS: Carvedilol 3.125 MG TAB PO SCH ×2 (08:28→17:40)
[2022-12-12] MEDS: Finasteride 5 MG TAB PO SCH (08:28)
[2022-12-12] MEDS: Potassium Chloride 20 MEQ TAB PO SCH ×2 (08:28→17:40)
[2022-12-12] MEDS: Aspirin 81 mg Enteric Coated Tablet PO SCH (08:28)
[2022-12-12] MEDS: Metolazone 5 MG TAB PO SCH (08:28)
[2022-12-12] MEDS: Ferrous Gluconate 324 MG TAB PO SCH (08:28)
[2022-12-12 11:33] VITALS: BMI 26.9
[2022-12-12] MEDS: HumaLOG 300 UNITS/3 ML VIAL SC PRN (12:15)
[2022-12-12] MEDS: Atorvastatin Calcium 10 MG TAB PO SCH (21:48)
[2022-12-12] MEDS: Tamsulosin HCl 0.4 MG CAP PO SCH (21:48)
[2022-12-12] MEDS: Gabapentin 300 MG CAP PO SCH (21:48)
[2022-12-12] MEDS: Lantus 1000 UNITS/10 ML VIAL SC SCH (21:59)
[2022-12-13] MEDS: HumaLOG 300 UNITS/3 ML VIAL SC PRN ×3 (08:45→17:01)
[2022-12-13] MEDS: Finasteride 5 MG TAB PO SCH (08:46)
[2022-12-13] MEDS: Ferrous Gluconate 324 MG TAB PO SCH (08:46)
[2022-12-13] MEDS: Potassium Chloride 20 MEQ TAB PO SCH ×2 (08:46→17:01)
[2022-12-13] MEDS: Furosemide 40 MG TAB PO SCH ×2 (08:47→14:26)
[2022-12-13] MEDS: Carvedilol 3.125 MG TAB PO SCH ×2 (08:47→17:01)
[2022-12-13] MEDS: Aspirin 81 mg Enteric Coated Tablet PO SCH (08:47)
[2022-12-13] MEDS ORDERED: Silver Sulfadiazine 50 GM TUBE TOP SCH (17:00)
[2022-12-13] MEDS: Lantus 1000 UNITS/10 ML VIAL SC SCH (21:12)
[2022-12-13] MEDS: Tamsulosin HCl 0.4 MG CAP PO SCH (21:13)
[2022-12-13] MEDS: Atorvastatin Calcium 10 MG TAB PO SCH (21:13)
[2022-12-13] MEDS: Gabapentin 300 MG CAP PO SCH (21:13)
[2022-12-13] MEDS: Acetaminophen 325 MG TAB PO PRN (21:14)
[2022-12-13] MEDS ORDERED: Silver Sulfadiazine 50 GM TUBE ONE (21:50)
[2022-12-13] MEDS: Silver Sulfadiazine 50 GM TUBE TOP SCH (21:55)
[2022-12-14] MEDS: Carvedilol 3.125 MG TAB PO SCH ×2 (08:12→17:03)
[2022-12-14] MEDS: HumaLOG 300 UNITS/3 ML VIAL SC PRN ×4 (08:12→21:50)
[2022-12-14] MEDS: Furosemide 40 MG TAB PO SCH ×2 (08:12→15:12)
[2022-12-14] MEDS: Potassium Chloride 20 MEQ TAB PO SCH ×2 (08:12→17:03)
[2022-12-14] MEDS: Aspirin 81 mg Enteric Coated Tablet PO SCH (08:12)
[2022-12-14] MEDS: Ferrous Gluconate 324 MG TAB PO SCH (08:12)
[2022-12-14] MEDS: Finasteride 5 MG TAB PO SCH (08:12)
[2022-12-14] MEDS: Silver Sulfadiazine 50 GM TUBE TOP SCH ×2 (08:13→21:52)
[2022-12-14] MEDS: Atorvastatin Calcium 10 MG TAB PO SCH (21:47)
[2022-12-14] MEDS: Tamsulosin HCl 0.4 MG CAP PO SCH (21:48)
[2022-12-14] MEDS: Lantus 1000 UNITS/10 ML VIAL SC SCH (21:48)
[2022-12-14] MEDS: Gabapentin 300 MG CAP PO SCH (21:49)
[2022-12-15 04:55] LABS: #Lymphocytes 0.5 thou/uL (1.20-3.40); #Monocytes 0.4 thou/uL (0.11-0.59); #Neutrophils 3.2 thou/uL (1.40-6.50); %Basophils 1.2 % (0.0-1.0); %Eosinophils 0.6 % (0.0-10.0); %Lymphocytes 12.9 % (21.0-51.0); %Monocytes 9.8 % (0.0-10.0); %Neutrophils 75.4 % (42.0-75.0); Hemoglobin 12.5 g/dL (14.0-18.0); Mean Corpuscular HGB CONC 30.4 g/dL (32.0-36.0); Mean Corpuscular Hemoglobin 25.6 pg (27.0-31.0); Mean Corpuscular Volume 84.2 fl (78.0-98.0); Mean Platelet Volume 10.8 fL (7.4-10.4); Platelet Count 105 10x3/uL (130-400); RBC Distribution Width 19.3 % (11.5-14.5); White Blood Cell (WBC) Count 4.2 10x3/uL (4.8-10.8)
[2022-12-15 05:02] LABS: Anion Gap 21 mmol/L (10-20); Calc. Creatinine Clearance 17 mL/min (70-130); Calcium 9.4 mg/dL (7.8-10.44); Carbon Dioxide 32 mmol/L (23-31); Chloride 91 mmol/L (98-107); Estimated GFR 15; Glucose 169 mg/dL (83-110); Potassium 3.7 mmol/L (3.5-5.1); Sodium 140 mmol/L (136-145)
[2022-12-15 05:40] LABS: BUN (Urea Nitrogen) 163 mg/dL (8.4-25.7)
[2022-12-15] MEDS: Ferrous Gluconate 324 MG TAB PO SCH (09:04)
[2022-12-15] MEDS: Carvedilol 3.125 MG TAB PO SCH ×2 (09:04→17:11)
[2022-12-15] MEDS: Metolazone 5 MG TAB PO SCH (09:04)
[2022-12-15] MEDS: Aspirin 81 mg Enteric Coated Tablet PO SCH (09:04)
[2022-12-15] MEDS: Furosemide 40 MG TAB PO SCH ×2 (09:04→13:46)
[2022-12-15] MEDS: Finasteride 5 MG TAB PO SCH (09:04)
[2022-12-15] MEDS: Potassium Chloride 20 MEQ TAB PO SCH ×2 (09:04→17:11)
[2022-12-15] MEDS: Silver Sulfadiazine 50 GM TUBE TOP SCH ×2 (09:12→21:55)
[2022-12-15] MEDS: HumaLOG 300 UNITS/3 ML VIAL SC PRN ×3 (11:44→21:56)
[2022-12-15] MEDS: Tamsulosin HCl 0.4 MG CAP PO SCH (21:54)
[2022-12-15] MEDS: Gabapentin 300 MG CAP PO SCH (21:55)
[2022-12-15] MEDS: Atorvastatin Calcium 10 MG TAB PO SCH (21:55)
[2022-12-15] MEDS: Lantus 1000 UNITS/10 ML VIAL SC SCH (21:55)
[2022-12-16] MEDS: Silver Sulfadiazine 50 GM TUBE TOP SCH ×2 (09:30→20:51)
[2022-12-16] MEDS: Carvedilol 3.125 MG TAB PO SCH ×2 (09:53→16:36)
[2022-12-16] MEDS: Ferrous Gluconate 324 MG TAB PO SCH (09:53)
[2022-12-16] MEDS: Furosemide 40 MG TAB PO SCH ×2 (09:54→14:40)
[2022-12-16] MEDS: Aspirin 81 mg Enteric Coated Tablet PO SCH (09:54)
[2022-12-16] MEDS: Potassium Chloride 20 MEQ TAB PO SCH ×2 (09:54→16:36)
[2022-12-16] MEDS: Finasteride 5 MG TAB PO SCH (09:54)
[2022-12-16] MEDS: HumaLOG 300 UNITS/3 ML VIAL SC PRN ×2 (16:35→20:42)
[2022-12-16] MEDS: Tamsulosin HCl 0.4 MG CAP PO SCH (20:40)
[2022-12-16] MEDS: Atorvastatin Calcium 10 MG TAB PO SCH (20:40)
[2022-12-16] MEDS: Gabapentin 300 MG CAP PO SCH (20:41)
[2022-12-16] MEDS: Lantus 1000 UNITS/10 ML VIAL SC SCH (20:41)
[2022-12-17] MEDS: Carvedilol 3.125 MG TAB PO SCH ×2 (08:14→17:09)
[2022-12-17] MEDS: Finasteride 5 MG TAB PO SCH (08:14)
[2022-12-17] MEDS: Furosemide 40 MG TAB PO SCH ×2 (08:14→15:21)
[2022-12-17] MEDS: Potassium Chloride 20 MEQ TAB PO SCH ×2 (08:14→17:09)
[2022-12-17] MEDS: Aspirin 81 mg Enteric Coated Tablet PO SCH (08:15)
[2022-12-17] MEDS: Metolazone 5 MG TAB PO SCH (08:15)
[2022-12-17] MEDS: Ferrous Gluconate 324 MG TAB PO SCH (08:15)
[2022-12-17] MEDS: EPOETIN ALFA-EPBX (ESRD) 10,000 UNIT/ML VIAL SC SCH (08:19)
[2022-12-17] MEDS: Silver Sulfadiazine 50 GM TUBE TOP SCH ×2 (08:20→20:30)
[2022-12-17] MEDS: HumaLOG 300 UNITS/3 ML VIAL SC PRN ×2 (12:11→17:09)
[2022-12-17] MEDS: Lantus 1000 UNITS/10 ML VIAL SC SCH (20:27)
[2022-12-17] MEDS: Acetaminophen 325 MG TAB PO PRN (20:28)
[2022-12-17] MEDS: Tamsulosin HCl 0.4 MG CAP PO SCH (20:28)
[2022-12-17] MEDS: Gabapentin 300 MG CAP PO SCH (20:28)
[2022-12-17] MEDS: Atorvastatin Calcium 10 MG TAB PO SCH (20:29)
[2022-12-18 07:26] VITALS: BP 116/68; TEMP 98.4
[2022-12-18] MEDS: Potassium Chloride 20 MEQ TAB PO SCH (08:14)
[2022-12-18] MEDS: Aspirin 81 mg Enteric Coated Tablet PO SCH (08:14)
[2022-12-18] MEDS: Carvedilol 3.125 MG TAB PO SCH (08:14)
[2022-12-18] MEDS: Finasteride 5 MG TAB PO SCH (08:14)
[2022-12-18] MEDS: Ferrous Gluconate 324 MG TAB PO SCH (08:14)
[2022-12-18] MEDS: Furosemide 40 MG TAB PO SCH ×2 (08:14→15:05)
[2022-12-18] MEDS: Silver Sulfadiazine 50 GM TUBE TOP SCH (08:15)
[2022-12-18] MEDS: HumaLOG 300 UNITS/3 ML VIAL SC PRN (11:59)
== END 2022-12-18 16:00 | DRG 947 ==
LOC: MADMS 19:20
PROVIDERS: ADMIT Family Medicine; ATTEND Family Medicine
DX: R53.1 Weakness (principal); I50.23 Acute on chronic systolic (congestive) heart failure; J96.01 Acute respiratory failure with hypoxia; I13.0 Hypertensive heart and chronic kidney disease with heart failure and stage 1 through stage 4 chronic kidney disease, or unspecified chronic kidney disease; I42.0 Dilated cardiomyopathy; D61.818 Other pancytopenia; N17.9 Acute kidney failure, unspecified; R53.81 Other malaise; E11.22 Type 2 diabetes mellitus with diabetic chronic kidney disease; N18.9 Chronic kidney disease, unspecified; E78.5 Hyperlipidemia, unspecified; N40.0 Benign prostatic hyperplasia without lower urinary tract symptoms; I25.10 Atherosclerotic heart disease of native coronary artery without angina pectoris; I48.0 Paroxysmal atrial fibrillation; D63.1 Anemia in chronic kidney disease; E11.649 Type 2 diabetes mellitus with hypoglycemia without coma; K21.9 Gastro-esophageal reflux disease without esophagitis; Z20.822 Contact with and (suspected) exposure to COVID-19; I34.0 Nonrheumatic mitral (valve) insufficiency; Z88.1 Allergy status to other antibiotic agents; Z79.82 Long term (current) use of aspirin; Z79.899 Other long term (current) drug therapy; Z79.4 Long term (current) use of insulin; Z86.73 Personal history of transient ischemic attack (TIA), and cerebral infarction without residual deficits; Z95.0 Presence of cardiac pacemaker; Z90.49 Acquired absence of other specified parts of digestive tract; Z99.81 Dependence on supplemental oxygen
CPT/HCPCS: 36416; 80048; 80053; 85025; 87811; J1815; Q5105

== ENCOUNTER 2023-02-10 15:22 | Emergency (ER) | payer MEDICARE ==
[2023-02-10 16:26] LABS: Hemoglobin 14.6 g/dL (14.0-18.0); Mean Corpuscular HGB CONC 31.2 g/dL (32.0-36.0); Mean Corpuscular Hemoglobin 27.9 pg (27.0-31.0); Mean Corpuscular Volume 89.2 fl (78.0-98.0); Mean Platelet Volume 11.6 fL (7.4-10.4); Platelet Count 89 10x3/uL (130-400); RBC Distribution Width 19.6 % (11.5-14.5); Red Blood Cell (RBC) Count 5.24 mill/uL (4.70-6.10); White Blood Cell (WBC) Count 4.9 10x3/uL (4.8-10.8)
[2023-02-10] MEDS ORDERED: Sodium Chloride 0.9% 500 ML ONE ×2 (16:26→18:18)
[2023-02-10 16:34] LABS: Anisocytosis SLIGHT = 6-15 cells (100X) (0-5/hpf); Elliptocytes SLIGHT = 2-5 cells (100X) (0-1/hpf); Lymphocytes 18 % (21-51); MDiff Complete? YES; Macrocytosis SLIGHT = 6-15 cells (100X) (0-5/hpf); Microcytosis SLIGHT = 6-15 cells (100X) (0-5/hpf); Monocytes 3 % (0-10); Neutrophil 75 % (42-75); Platelet Morphology Comment Appears Decreased; Reactive Lymphocytes 3 % (0-10)
[2023-02-10 16:42] LABS: ALT (SGPT) Less than 7 U/L (8-55); AST (SGOT) 15 U/L (5-34); Albumin 3.3 g/dL (3.4-4.8); Alkaline Phosphatase 80 U/L (40-110); Anion Gap 21 mmol/L (10-20); BUN (Urea Nitrogen) 105 mg/dL (8.4-25.7); Bilirubin, Total 0.9 mg/dL (0.2-1.2); CK (CPK) 113 U/L (30-200); Calc. Creatinine Clearance 0 mL/min (70-130); Calcium 8.3 mg/dL (7.8-10.44); Carbon Dioxide 26 mmol/L (23-31); Chloride 93 mmol/L (98-107); Estimated GFR 15; Globulin 3.5 g/dL (2.4-3.5); Glucose 182 mg/dL (83-110); Magnesium 1.6 mg/dL (1.6-2.6); Potassium 3.8 mmol/L (3.5-5.1); Protein, Total 6.8 g/dL (5.8-8.1); Sodium 136 mmol/L (136-145)
[2023-02-10 16:58] LABS: CKMB 4.7 ng/mL (0-6.6)
[2023-02-10 17:08] LABS: Bilirubin Negative (Negative); Blood, Urine Negative (Negative); Clarity Clear (Clear); Glucose, Urine (Dipstick) Negative (Negative); Ketone, Urine Trace mg/dL (Negative); Leukocyte Negative (Negative); Nitrite Negative (Negative); Protein, Urine (Dipstick) 30 mg/dL (Neg-Trace); Urobilinogen 0.2 mg/dL (Less than 2)
[2023-02-10 17:10] LABS: Bacteria/HPF None Seen HPF (None Seen); RBC/HPF 0-3 HPF (0-3); Squamous Epithelial 0-3 HPF (0-3); WBC/HPF 0-3 HPF (0-3)
[2023-02-10] MEDS ORDERED: Boostrix 0.5 ML (Tdap) VIAL (>/=7 yrs of age) ONE (18:18)
[2023-02-10 20:23] LABS: Lactic Acid 2.5 mmol/L (0.5-2.2)
[2023-02-10 21:17] LABS: CKMB 7.2 ng/mL (0-6.6)
== END 2023-02-10 22:20 | disposition left against medical advice (07) ==
LOC: MADERS 15:22
DX: E11.22 Type 2 diabetes mellitus with diabetic chronic kidney disease (principal); I13.0 Hypertensive heart and chronic kidney disease with heart failure and stage 1 through stage 4 chronic kidney disease, or unspecified chronic kidney disease; N18.9 Chronic kidney disease, unspecified; D69.6 Thrombocytopenia, unspecified; R77.8 Other specified abnormalities of plasma proteins; E87.20 Acidosis, unspecified; R94.6 Abnormal results of thyroid function studies; E66.9 Obesity, unspecified; Z79.899 Other long term (current) drug therapy; Z79.4 Long term (current) use of insulin; Z79.82 Long term (current) use of aspirin
CPT/HCPCS: 36415; 51701; 70450; 71045; 72125; 72170; 81003; 81015; 82550; 82553; 83605; 83735; 84439; 84443; 84484; 85025; 87040; 90471; 90715; 93005; 94760; J7030